=== PATIENT | female | born 1945 | race Caucasian/White ===

== ENCOUNTER 2025-03-24 11:24 | Emergency (ER) | payer MEDICARE, SELFPAY ==
--- NOTE | 2025-03-24 11:30 | ED.EXTPRO ---
HPI - Extremity Problem General Chief complaint: Skin/Abscess/Foreign Body Stated complaint: left thumb area swollen Time Seen by Provider: 03/24/25 11:30 Source: patient Mode of arrival: ambulatory Limitations: no limitations History of Present Illness HPI Narrative: Dayanna is a 79-year-old female patient presenting to the clinic today with complaints of left thumb pain, redness, and swelling. Reports symptoms started last night. No fevers, chills, body aches. Patient is diabetic. No no injury to the thumb. Has taken Tylenol for pain. Rates pain currently a 02/18. No history of MRSA. Related Data Home Medications ?Medication ?Instructions ?Recorded ?Confirmed ?Last Taken ?Type amiodarone 200 mg tablet mg 03/24/25 Unknown History apixaban 5 mg tablet (Eliquis) mg 03/24/25 Unknown History atorvastatin 20 mg tablet mg 03/24/25 Unknown History carvedilol 6.25 mg tablet mg 03/24/25 Unknown History duloxetine 30 mg capsule,delayed mg PO 03/24/25 Unknown History release empagliflozin 10 mg tablet mg 03/24/25 Unknown History (Jardiance) hydroxyzine HCl 25 mg tablet mg 03/24/25 Unknown History insulin glargine 100 unit/mL (3 unit subcut 03/24/25 Unknown History mL) subcutaneous pen (Lantus Solostar U-100 Insulin) semaglutide 2 mg/dose (8 mg/3 mL) mg subcut 03/24/25 Unknown History subcutaneous pen injector (Ozempic) sildenafil (pulm.hypertension) 20 mg 03/24/25 Unknown History mg tablet Allergies Allergy/AdvReac Type Severity Reaction Status Date / Time No Known Allergies Allergy Verified 03/24/25 11:39 Review of Systems Review of Systems: Pertinent positives per HPI. Patient denies any fever, chills, rash, headache, visual changes, dizziness, cough, runny nose, sore throat, shortness of breath, chest pain, palpitations, nausea, vomiting, diarrhea, constipation, abdominal pain, or any urinary issues. PMFSH Comments At the time of my signature, I reviewed and agree with the nursing past medical, surgical, social, and family history. There is no relevant family history pertinent to the patient complaint. Exam Narrative: General: Well-developed, well nourished, in no apparent distress Head: Normocephalic, atraumatic. Cardio: Regular rate and rhythm, s1 and s2 normal, no murmur appreciated. Resp: Clear to auscultation bilaterally, no rhonchi, rales, wheezing or rubs. Integumentary: [place], warm, and dry, left proximal and distal thumb red, swelling, with mild erythema and tender to palpation, scabbed area over the proximal dorsal thumb with lymphatic streaking going into the radial wrist Course Course Emergency Course: Portions of this record may have been created with voice recognition software. Level of Care: Express Care Visit Vital Signs Vital signs: Vital Signs Temperature 36.6 C 03/24/25 11:33 Pulse Rate 71 03/24/25 11:33 Respiratory Rate 16 03/24/25 11:33 Blood Pressure 136/54 L 03/24/25 11:33 Pulse Oximetry 98 03/24/25 11:33 Oxygen Delivery Room Air 03/24/25 11:33 Temperature 36.6 C 03/24/25 11:33 Pulse Rate 71 03/24/25 11:33 Respiratory Rate 16 03/24/25 11:33 Blood Pressure 136/54 L 03/24/25 11:33 Pulse Oximetry 98 03/24/25 11:33 Oxygen Delivery Room Air 03/24/25 11:33 Vital signs reviewed MDM - Extremity (Nontraumatic) MDM Narrative Medical decision making narrative: At the time of visit patient is resting comfortably on the exam table. Patient appears to be nontoxic. Complaints of left thumb pain, redness, and swelling. Reports symptoms started last night. No fevers, chills, body aches. Patient is diabetic. No no injury to the thumb. Has taken Tylenol for pain. Rates pain currently a 7/10. On exam left proximal and distal thumb red, swelling, with mild erythema and tender to palpation, scabbed area over the proximal dorsal thumb with lymphatic streaking going into the radial wrist. No history of MRSA. Shared decision making performed: Offer to send patient to the emergency room at this time for further evaluation, labs, and possible IV antibiotics. Other option would be to get injection of antibiotics in the clinic today and trial oral antibiotics and if her symptoms worsen in any way she should go to the emergency room. Patient would like IM injection and trial oral antibiotics. Rocephin 1 g mixed with lidocaine was ordered Medications: Rocephin 1 g mixed with lidocaine IM given in the clinic today Plan: I suspect patient has left thumb cellulitis with lymphatic streaking into the right radial wrist. Patient is a diabetic. Prescriptions for doxycycline and cephalexin was sent to the pharmacy. Supportive measures were discussed with the patient and they voiced understanding discharge instructions and agrees to treatment plan. Return precautions reviewed Differential Diagnosis Differential diagnosis: Likely herpes zoster, gout, cellulitis, superficial thrombophlebitis, deep venous thrombosis of upper extremity, lower extremity edema and deep vein thrombosis of lower extremity Discharge Plan Discharge Clinical Impression: Cellulitis of left thumb Patient Disposition: Home Condition: Stable Instructions: Antibiotic Form, Cellulitis (ED) Additional Instructions: I suspect to have cellulitis infection to the left thumb with some lymphatic streaking Offer to send you to the emergency room for further evaluation, labs, possible iv antibiotics and you declined at this time Rocephin 1 g mixed with lidocaine given in the clinic today Take doxycycline and cephalexin as prescribed. Keep a tight control in your blood sugar Keep wound clean and dry Watch for signs and symptoms of worsening infection- Fever not controlled by Tylenol, confusion, weakness, increase redness, streaking, swelling, purulent discharge, or increase in pain. Follow up with your PCP in 2 days for recheck Go to the emergency room if you develop worsening signs of infection Patient Language: Honduran Prescriptions: New cephalexin 500 mg capsule 500 mg PO Q8H 10 Days Qty: 30 0RF doxycycline monohydrate 100 mg capsule 100 mg PO BID 10 Days Qty: 20 0RF No Action carvedilol 6.25 mg tablet atorvastatin 20 mg tablet amiodarone 200 mg tablet hydroxyzine HCl 25 mg tablet duloxetine 30 mg capsule,delayed release(DR/EC) PO sildenafil (pulm.hypertension) 20 mg tablet insulin glargine [Lantus Solostar U-100 Insulin] 100 unit/mL (3 mL) insulin pen SUBCUT Eliquis 5 mg tablet Jardiance 10 mg tablet Ozempic 2 mg/dose (8 mg/3 mL) pen injector SUBCUT Follow-up/Referrals: Renato,Bill Leon MD [Primary Care Provider] - Time of Disposition: 11:52 Quality NIHSS Nursing Documentation ED NIHSS nursing documentation: reviewed/agree
[2025-03-24 11:33] VITALS: BP 136/54; PULSE 71; RESP 16; TEMP 36.6; O2SAT 98
--- OUTSIDE RECORDS SUMMARY | 2025-03-24 11:33 | XMS_ITS | Encounter Summary ---
Author Organization [facility] Address [address] [place] [address] Phone Care Team Providers Care Pecan Huller Name Role Phone Ariana Nuñez MD Unavailable Néstor Sloan MD Unavailable [phone] Peter Ritter MD Unavailable [phone] Harriet Aden DNP Unavailable [phone] Gabrielle Arias Unavailable Rasheed Shepard MD Unavailable Shantal Jaime MD Unavailable Tyron Huff MD Unavailable [phone] Ata Oliveira MD Unavailable [phone] Addie Francis MD Unavailable Bill Gross MD Primary Care Provider Vinh Scherer MD Unavailable Michael Weiss MD Unavailable Ayde Hewitt NP Unavailable [phone] Farnaz Banda MD Unavailable [phone] Femi Lorenzana MD Unavailable Jeanne Laguerre MD Unavailable John Zarate MD Unavailable [phone] Izzy Padilla MD PhD Unavailable Reid Whipple MD Unavailable Yen Fleming DO Unavailable Datillo, Laura Osman QUILTING MACHINE OPERATOR Unavailable Peter Ritter MD Unavailable [phone] Otto White MD Unavailable Otto White MD Unavailable Heber Christianson MD Unavailable Datillo, Laura Osman QUILTING MACHINE OPERATOR Unavailable Iliana Leonard Unavailable James Gonzalez MD Unavailable Iliana Leonard Unavailable Delmy Godfrey MD Unavailable Mayte Hudson RN Unavailable Bart Fernando MD, Santana Cooney Unavailable + Encounter Details Date Type Department Care Team (Late st Contact Info) Description 04/25/2021 Orders Only [facility] [address] [place] [address] Bill Gross MD [address] [place] [address] Social History Tobacco Use Types Packs/Day Years Used Date Smoking Tobacco: Never Smokeless Tobacco: Never Alcohol Use Standard Drinks/Week Comments No 0 (1 standard drink = 0.6 oz pur e alcohol) Humiliation, Afraid, Rape, and Kick questionnair e Answer Date Recorded Within the last year, have y ou been afraid of your partner or ex-partner? No 11/22/2020 Within the last year, have y ou been humiliated or emotionally abused in other ways by your partner or ex-partner? No Within the last year, have y ou been kicked, hit, slapped, or otherwise physically hurt by your partner or ex-partner? No 11/22/2020 Within the last year, have y ou been raped or forced to have any kind of sexual activity by your partner or ex-partner? No 11/22/2020 Social Connection and Isolation Panel Answer Date Recorded In a typical week, how many times do you talk on the phone with family, friends, or neighbors? Three times a week 11/23/19 How often do you get togethe r with friends or relatives? Once a week 11/22/2020 How often do you attend chur or christianity services? 1 to 4 times per year 11/22/2020 Do you belong to any clubs o r organizations such as temple groups, unions, fraternal or athletic groups, or school groups? Yes 11/22/2020 How often do you attend meet ings of the clubs or organizations you belong to? 1 to 4 times per year 11/22/2020 Are you , , di vorced, , never , or living with a partner? 11/22/2020 AUDIT-C Answer Date Recorded Q1: How often do you have a drink containing alc ohol? Monthly or less 03/17/2021 Q2: How many drinks containi ng alcohol do you have on a typical day when you are drinking? 1 or 2 03/17/2021 Q3: How often do you have si x or more drinks on one occasion? Never 03/17/2021 Overall Financial Resource Strain (CARDIA) Answe r Date Recorded How hard is it for you to pa y for the very basics like food, housing, medical care, and heating? Not very hard 11/22/2020 PHQ-2 Answer Date Recorded PHQ-2 Total Score (If total score is 3 or more points, staff should administer the PHQ-9) 4 12/28/2020 Hunger Vital Sign Answer Date Recorded Within the past 12 months, y ou worried that your food would run out before you got the money to buy more. Never true 11/23/19 21 Within the past 12 months, t he food you bought just didn't last and you didn't have money to get more. Never true 11/22/2020 PRAPARE - Transportation Answer Date Re corded In the past 12 months, has l ack of transportation kept you from medical appointments or from getting medications? No 11/10 In the past 12 months, has l ack of transportation kept you from meetings, work, or from getting things needed for daily living? No 11/22/2020 Housing Stability Vital Sign Answer Aguilar e Recorded In the last 12 months, was t here a time when you were not able to pay the mortgage or rent on time? No 11/22/2020 Number of Places Lived in the Last Year Not on f ile 11/22/2020 In the last 12 months, was t here a time when you did not have a steady place to sleep or slept in a penitentiary (including now)? No 11/22/2020 Comments No Sex and Gender Information Value Date Recorded Sex Assigned at Not on file Legal Sex Female 11:59 PM RAILCAR MECHANIC Gender Identity Female 01/29/2022 12:55 PM CDT Sexual Orientation Straight 06/10/2019 1: 27 PM CDT Occupation Industry Job Start Date Job End Date retired Not on file Not on file Not on file documented as of this encounter Plan of Treatment Scheduled Procedures Name Priority Associated Diagnoses Date/Ti me ESOPHAGOGASTRODUODENOSCOPY Pulmonary hypertension (HCC) documented as of this encounter Procedures Procedure Name Priority Date/Time Associated Diagnosis Comments PROCEDURE - RESULT 04/25/2021 documented in this encounter Results * PROCEDURE - RESULT (04/25/2021) us Bill Gross MD Edited Result - Final documented in this encounter Visit Diagnoses Not on filedocumented in this encounter Additional Health Concerns Infection Onset Date Last Indicated Resolved Time COVID: Suspected 06/27/2022 06/27/2022 06/27/2022 5:07 PM RAILCAR MECHANIC documented as of this encounter Care Teams Pecan Huller Relationship Specialty Start Date End Date Bill Gross MD [address] [place] [address] PCP - General Infectious Diseases 12/05/20 Ariana Nuñez MD [address] [facility] [facility] [address] [place] [address] Referring Physician Endocrinology Diabetes & Metabolism 12/07/17 Néstor Sloan MD [address] [facility] [facility] [address] [place] [address] Surgeon Neurosurgery 12/14/17 Peter Ritter MD [address] [place] [address] [address] [place] [address] Consulting Physician Endocrinology 05/27/19 11/12/21 Harriet Aden DNP [address] [place] [address] [address] [place] [address] Nurse Practitioner Neurology 09/24/19 11/28/23 Gabrielle Arias PA [address] [place] [address] [address] [place] [address] Physician Ham Marker Orthopedic Surgery 09/24/19 [place] [address] [address] Surgeon Orthopedic Surgery 02/10/20 [place] [address] [address] Consulting Physician Bone Health 10/10/20 [place] [address] [address] Anesthesiologist Pain Management 02/10/12 Ata Oliveira MD [address] [facility] [address] [facility] [place] [address] Consulting Physician Neurology 02/10/20 Addie Francis MD [address] [facility] [place] [address] Surgeon Vascular Surgery 11/08/20 Vinh Scherer MD [address] [place] [address] Consulting Physician Vascular Surgery 10/28/20 Michael Weiss MD [address] [address] Consulting Physician Psychiatry 02/09/21 Ayde Hewitt QUILTING MACHINE OPERATOR [address] [facility] [address] [place] [address] Nurse Practitioner Cardiovascular Disease 03/09/21 06/21/23 Farnaz Banda MD [address] [place] [address] Consulting Physician Pulmonary Disease 04/27/21 Femi Lorenzana MD [address] [place] [address] Consulting Physician Sleep Medicine 09/21/21 Jeanne Laguerre MD [address] [place] [address] Referring Physician Ophthalmology 06/12/21 John Zarate MD [address] [place] [address] Consulting Physician Cardiology 04/09/22 Izzy Padilla MD PhD [address] [place] [address] Consulting Physician Internal Medicine 07/03/22 Reid Whipple MD [address] [facility] [address] Delarosa [facility] [address] [place] [address] Surgeon Orthopedic Surgery 05/25/22 Yen Fleming DO [address] [facility] [address] [place] [address] Consulting Physician Nephrology 11/26/22 05/16/23 Laura Menjivar, AMALIA [address] [facility] [address] [place] [address] Nurse Practitioner Family Medicine 12/21/22 Peter Ritter MD [address] [facility] [address] [place] [address] Consulting Physician Endocrinology 01/18/23 Otto White MD [address] [facility] [address] [place] [address] Consulting Physician Nephrology 05/14/23 Otto White MD [address] [facility] [address] [place] [address] Consulting Physician Nephrology 05/14/23 05/27/23 Heber Christianson MD [address] [place] [address] Referring Physician Internal Medicine 06/04/23 Laura Menjivar NP [address] [facility] [address] [place] [address] Nurse Practitioner Cardiology 06/11/23 07/06/23 Iliana Leonard PA [address] [place] [address] [address] [place] [address] Batch Weigher Orthopedic Surgery 07/24/23 James Gonzalez MD [address] [place] [address] [address] [place] [address] Consulting Physician General Surgery 09/12/23 Iliana Leonard PA [address] [facility] [address] [place] [address] Orthopedic Surgery 09/25/23 Delmy Godfrey MD [address] [place] [address] [address] [place] [address] Consulting Physician Internal Medicine 12/23/23 Mayte Hudson RN [address] [place] [address] [address] [place] [address] Type Inspector 12/18/24 02/21/25 Bart, Santana Cooney Jr., MD [address] [facility] [address] IM PULMONARY [facility] CRITICAL CARE MEDICINE [place], [place] [id number] Consulting Physician Pulmonary Disease 08/23/24 documented as of this encounter
--- OUTSIDE RECORDS SUMMARY | 2025-03-24 11:33 | XMS_ITS | Clinical Summary ---
Author Organization [facility] Address [address], [facility] [address] [place] [address] Phone Care Team Providers Care Last Picker Name Role Phone Bill Gross MD Primary Care Provider [phone] Chris Wayne APRN, [employer] Unavailable [phone] Allergies No known active allergies Medications Blood Glucose Monitoring Suppl (D-CARE GLUCOMETER) w/Device Kit 1 Device by Does not apply route daily. 1 Kit 7 Active ferrous sulfate 325 (65 Fe) MG Tablet Take 325 mg by mouth daily. Active simvastatin (ZOCOR) 40 MG Tablet Take 1 Tab by mouth every evening. 90 Tab 3 8 Active omeprazole (PRILOSEC) 40 MG CAPSULE DELAYED RELEASE Take 1 Cap by mouth daily. 90 Cap 8 Active Multiple Vitamins-Ritchie als (MULTIVITAMIN PO) Take 1 Tab by mouth. Active apixaban (ELIQUIS) 5 MG Tablet Take 5 mg by mouth 2 times daily. Active insulin glargine (Lantus) 100 UNIT/ML Solution 10 Units by Subcutaneous route nightly. Active HYDROcodone-ac etaminophen (NORCO) 5-325 MG TabletIndicati ons:Pain Take 1-2 Tablets by mouth every 6 hours as needed for Mild or more severe pain. Indications: Pain 1 Active Calcium Carb-Cholecalc iferol 600-800 MG-UNIT Tablet Take 1 Tablet by mouth daily. 1 Active DULoxetine HCl 20 MG Capsule Delayed Release Sprinkle Take 20 mg by mouth daily. 1 Active metoprolol tartrate (LOPRESSOR) 25 MG Tablet Take 50 mg by mouth 2 times daily. 1 Active sildenafil (REVATIO) 20 MG Tablet TAKE 1 TABLET BY MOUTH THREE TIMES DAILY FOR 2 WEEKS, THEN 2 TABLETS BY MOUTH 3 TIMES A DAY 2 Active propranolol (INDERAL) 10 MG Tablet TAKE 1 TABLET BY MOUTH THREE TIMES A DAY 2 Active Multiple Vitamins-[employer] als (Multivitamin- Minerals) Tablet Multivitamin-Mine rals Oral Tablet QTY: 0 tablet Days: 0 Refills: 0 Written: 11/09/20 Patient Instructions: TAKE 1 TABLET BY MOUTH DAILY 1 Active furosemide (LASIX) 40 MG Tablet Take 40 mg by mouth daily. 2 Active escitalopram (LEXAPRO) 20 MG Tablet 2 Active busPIRone (BUSPAR) 5 MG Tablet 2 Active amitriptyline (ELAVIL) 10 MG Tablet TAKE 1 TABLET BY MOUTH EVERY DAY IN THE EVENING 2 Active Acetaminophen 500 MG Capsule Acetaminophen 500 MG Oral Capsule QTY: 0 capsule Days: 0 Refills: 0 Written: 11/09/20 Patient Instructions: 1 Active atorvastatin (LIPITOR) 20 MG Tablet 2 Active clonazePAM (KlonoPIN) 0.5 MG Tablet clonazePAM 0.5 MG Oral Tablet QTY: 0 tablet Days: 0 Refills: 0 Written: 11/09/20 Patient Instructions: TAKE 1 TABLET (0.5MG TOTAL) BY MOUTH DAILY 1 Active citalopram (CeleXA) 20 MG Tablet Citalopram Hydrobromide 20 MG Oral Tablet QTY: 0 tablet Days: 0 Refills: 0 Written: 11/09/20 Patient Instructions: TAKE 1 TABLET (20MG TOTAL) BY MOUTH DAILY 1 Active Zoledronic Acid 4 MG Recon Soln Zoledronic Acid 4 MG/5ML Intravenous Concentrate QTY: 0 Days: 0 Refills: 0 Written: 11/09/20 Patient Instructions: INFUSE 4MG INTO A VENOUS CATHETER 1 Active Mirabegron ER (Myrbetriq) 25 MG TABLET SR 24 HRIndications: Overactive bladder Take 25 mg by mouth daily. 30 Tablet 1 2 Active Diclofenac Sodium (Voltaren) 1 % GelIndications :Right wrist pain Apply 2 g 4 times daily. Right wrist 100 g 1 4 Active Active Problems Problem Noted Date Diagnosed Date Liver cyst 02/04/2018 Compression deformity of vertebra 02/04/2018 Osteoporosis 02/04/2018 Osteoarthritis of multiple joints 08/17/2016 Type 2 diabetes mellitus without complication Overactive bladder Anxiety Depression GERD (gastroesophageal reflux disease) Hiatal hernia HTN (hypertension) HLD (hyperlipidemia) TARAN (obstructive sleep apnea) DJD (degenerative joint disease), lumbar SI (sacroiliac) joint dysfunction Vitamin B12 deficiency Immunizations Immunization Administration Dates Next Due Influenza Vaccine greater than 3 yrs 07/27/2015, 07/12/2014 Influenza Vaccine, Quadrivalent, PF 07/26/2017 Influenza, high-dose, trivalent, PF 05/01/2019,1 ,07/26/2015 PUR PCV-13 08/17/2016 Pneumococcal Vaccine Adult - 23 Valent 5 TD VACCINE 04/12/2015 Family History Medical History Relation Name Comments Cancer Brother sinus and liver Heart Attack Father Breast Cancer Maternal Grandmother Breast Cancer Mother Cancer Mother breast Diabetes Mother Stroke Mother Relation Name Status Comments Brother Father Maternal Grandmother Mother Social History Tobacco Use Types Packs/Day Years Used Date Smoking Tobacco: Never Smokeless Tobacco: Never Tobacco Cessation:Counseling Given: Yes Alcohol Use Standard Drinks/Week Comments No 0 (1 standard drink = 0.6 oz pur e alcohol) Comments No Sex and Gender Information Value Date Recorded Sex Assigned at Not on file Legal Sex Female 12:41 AM CDT Gender Identity Not on file Sexual Orientation Not on file Last Filed Vital Signs Vital Sign Reading Time Taken Comments Blood Pressure 128/70 02/22/2024 2:53 PM CDT Pulse 89 02/22/2024 2:53 PM CDT Temperature 36.1 C (97 F) 02/22/2024 2:53 PM CDT Respiratory Rate 12 02/22/2024 2:53 PM CDT Oxygen Saturation 99% 02/22/2024 2:53 PM CDT Inhaled Oxygen Concentration - - Weight 75.8 kg (167 lb) 02/27/2022 11:13 AM CDT Height 152.4 cm (5') 02/27/2022 11:13 AM CDT Body Mass Index 32.61 02/27/2022 11:13 AM CDT Plan of Treatment Health Maintenance Due Date Last Done Comments Diabetes: Foot Exam 1945 Hepatitis C Virus (HCV) Screening 1945 Diabetes: Eye Exam 05/24/2017 05/24/2016 Diabetes: Nephropathy Screening 01/28/2019 01/28/2018, 07/16/2017, 11/08/2016, Additional history exists Respiratory Syncytial Virus (RSV) Immunization (Adult) (1 - 1-dose 75+ series) 2021 SARS-COV-2 Immunization ( season) 2024 05/01/2021, 04/03/2021 Diabetes: Hemoglobin A1c 05/29/2024 024, 11/03/2020, 08/23/2020, Additional history exists DEXA Bone Density 09/11/2024 09/11/2022, , 08/16/2020, Additional history exists Influenza Immunization (#1) 04/12/202506/12, 08/14/2021, 06/07/2020, Additional history exists TdaP Immunization Completed 12/17/2014 Pneumococcal Immunization (50+ years) Completed 08/17/2016, 12/17/2014 Pneumococcal Immunization Combined Discontinued 08/17/2016, 12/17/2014 Colonoscopy Discontinued 02/11/2019, 09/08/2014 Colorectal Cancer Screening Discontinued Zoster Immunization Completed 08/07/2019, 9 Mammogram Discontinued 02/10/2021, 09/2020, 07/05/2018, Additional history exists Cologuard Discontinued Hepatitis B Immunization Aged Out No longer eligible based on patient's age to complete this topic Human Papillomavirus (HPV) Immunization Aged Out No longer eligible based on patient's age to complete this topic Immunochemical Fecal Occult Blood Discontinued Meningococcal Immunization (ACWY) Aged Out No longer eligible based on patient's age to complete this topic Rotavirus Immunization Aged Out No lo nger eligible based on patient's age to complete this topic Procedures Procedure Name Priority Date/Time Associated Diagnosis Comments CMP (COMPREHENSIVE METABOLIC PANEL) Routine 01/28/2018 9:08 AM CDT Type 2 diabetes mellitus without complication, without long-term current use of insulin (HCC) HEMOGLOBIN A1C W/ ESTIMATED GLUCOSE Routine 01/28/2018 9:08 AM CDT Type 2 diabetes mellitus without complication, without long-term current use of insulin (HCC) ODALIS SCREENING BILATERAL DIGITAL W CAD Routine 01/25/2017 12:35 PM CDT Encounter for screening mammogram for breast cancer HM DILATED EYE EXAM Routine 05/24/2016 HM COLONOSCOPY Routine 09/08/2014 10:48 AM CLEANING MACHINE OPERATOR from Last 3 Months or Most Recently Relevant to Health Maintenance Results * (ABNORMAL) HEMOGLOBIN A1C W/ ESTIMATED GLUCOSE (01/28/2018 9:08 AM CDT) HGB-A1C 6.5(H) 4.4 - 6.4 % 01/28/2018 11:30 AM CDT [facility] Est Average Glucose 139.9 mg/dL 01/28/2018 11:[address] [facility] Blood specimen (specimen) Venipuncture / Unknown 01/28/2018 9:08 AM CDT 01/28/2018 9:08 AM CDT Narrative [facility] - 01/28/2018 11:30 AM CDT HEMOGLOBIN A1C: DIABETIC PATIENTS: WELL-CONTROLLED: 6.2 - 7.0 INTERMEDIATE WELL-CONTROLLED: 7.0 - 9.0 POORLY-CONTROLLED: >9.0 us Ellen García MD CHEMISTRY ORDERABLES Final R esult [facility] [address] [place] [address] * (ABNORMAL) CMP (COMPREHENSIVE METABOLIC PANEL) (01/28/2018 9:08 AM CDT) SODIUM 140 131 - 143 mmol/L 01/28/2018 12:04 PM CDT [facility] POTASSIUM 4.4 3.5 - 5.1 mmol/L 01/28/2018 12:04 PM CDT [facility] CHLORIDE 97(L) 100 - 110 mmol/L 01/28/2018 12:04 PM T [facility] CO2, VENOUS 26 22 - 32 mmol/L 01/28/2018 12:04 PM CDT [facility] ANION GAP 21.4(H) 8.0 - 20.0 mmol/L 01/28/2018 12:04 PM T [facility] GLUCOSE 149(H) 70 - 105 mg/dL 01/28/2018 12:04 PM T [facility] BUN 16 10 - 31 mg/dL 01/28/2018 12:[address] [facility] CREATININE, BLOOD 0.84 0.60 - 1.30 mg/dL 01/28/2018 12:04 PM CDT [facility] BUN/CREATININE RATIO 19 12 - 20 ratio 01/28/2018 12:04 PM T [facility] TOTAL PROTEIN 7.2 6.0 - 8.3 g/dL 01/28/2018 12:04 PM T [facility] ALBUMIN 4.2 3.5 - 5.2 g/dL 01/28/2018 12:[address] [facility] A/G RATIO 1.4 1.0 - 2.0 01/28/2018 12:04 PM CDT [facility] CALCIUM 10.8(H) 8.9 - 10.3 mg/dL 01/28/2018 12:04 PM T [facility] T BILI 0.6 0.3 - 1.2 mg/dL 01/28/2018 12:04 PM CDT [facility] SGOT (AST) 13 1 - 32 U/L 01/28/2018 12:04 PM T [facility] SGPT (ALT) 8 1 - 33 U/L 01/28/2018 12:04 PM CDT [facility] ALKALINE PHOSPHATASE 146(H) 35 - 105 U/L 01/28/2018 12:04 PM CDT [facility] GFR, EST. NONAFRICAN >60 >=60 01/28/2018 12:04 PM CDT [facility] GFR, EST. >60 >=60 01/28/2018 12:04 PM CDT [facility] Comment: Creatinine Clearance is the preferred criteria for selecting drug dose adjustments in renally impaired patients. The GFR is provided as additional pertinent clinical information. GFR is reported in mL/min/1.73 sq m. Blood specimen (specimen) Venipuncture / Unknown 01/28/2018 9:08 AM CDT 01/28/2018 9:08 AM CDT us Ellen García MD CHEMISTRY ORDERABLES Final R esult [facility] [address] [place] [address] * ODALIS SCREENING BILATERAL DIGITAL W CAD (01/25/2017 12:35 PM CDT) Anatomical Region Laterality Modality breast Bilateral Mammography 01/25/2017 12:1 9 PM CDT Narrative 01/26/2017 7:16 AM CDT - ODALIS SCREENING BILATERAL DIGITAL W CAD BILATERAL DIGITAL SCREENING MAMMOGRAM WITH CAD WITH MEDIOLATERAL OBLIQUE CRANIOCAUDAL: 01/25/2017 The study was acquired using digital technology and interpreted from soft copy. Current study was also evaluated with ICAD version 7.2. CLINICAL: Routine screening. Patient has no complaints. No personal history of cancer. Mother with postmenopausal breast cancer. Maternal grandmother had breast cancer. COMPARISONS: Comparison is made to exams dated: 09/08/2014, 07/03/2013, and 04/30/2012 [facility]. BREAST TISSUE:The tissue of both breasts is predominantly fatty. FINDINGS: No significant masses, calcifications, or other findings are seen in either breast. There has been no significant interval change. IMPRESSION: BI-RAD 1 NEGATIVE There is no mammographic evidence of malignancy. A 1 year screening mammogram is recommended. The patient has been or will be contacted. The patient will be entered into a reminder system with a target due date of 1 year for her next screening exam. Electronically signed by: James [email or web address]/penrad:01/25/2017 17:33:30 Non Licensed Operator: Haley Robison(R), [facility] letter sent: Normal Exam Reading location: [facility] BI-RADS: 1 Negative Procedure Note James Ahn MD - 01/26/2017 - ODALIS SCREENING BILATERAL DIGITAL W CAD BILATERAL DIGITAL SCREENING MAMMOGRAM WITH CAD WITH MEDIOLATERAL OBLIQUE CRANIOCAUDAL: 01/25/2017 The study was acquired using digital technology and interpreted from soft copy. Current study was also evaluated with ICAD version 7.2. CLINICAL: Routine screening. Patient has no complaints. No personal history of cancer. Mother with postmenopausal breast cancer. Maternal grandmother had breast cancer. COMPARISONS: Comparison is made to exams dated: 09/08/2014, 07/03/2013, and 04/30/2012 [facility]. BREAST TISSUE:The tissue of both breasts is predominantly fatty. FINDINGS: No significant masses, calcifications, or other findings are seen in either breast. There has been no significant interval change. IMPRESSION: BI-RAD 1 NEGATIVE There is no mammographic evidence of malignancy. A 1 year screening mammogram is recommended. The patient has been or will be contacted. The patient will be entered into a reminder system with a target due date of 1 year for her next screening exam. Electronically signed by: James mcgrath/penrad:01/25/2017 17:33:30 Non Licensed Operator: Haley Robison(R), [facility] letter sent: Normal Exam Reading location: [facility] BI-RADS: 1 Negative Result Renee García MD IMG MAMMO ORDERABLES Final R esult * HM DILATED EYE EXAM (05/24/2016) us Ellen García MD PROCEDURE/MINOR SURGICAL ORD ERABLES Final Result from Last 3 Months or Most Recently Relevant to Health Maintenance Insurance MEDICARE [facility] Advance Directives * Full Code (Latest Code Status on File) Date Activated Date Inactivated Comments 11/28/2020 12:36 PM * Full Code Date Activated Date Inactivated Comments 12/25/2017 1:09 PM 06/06/2018 5:22 AM Care Teams Last Picker Relationship Specialty Start Date End Date Bill Gross MD [employer], [address] [place] [address] PCP - General Infectious Disease 12/14/20 Chris Wayne, MAT MACHINE TENDER, [employer]RA[employer] [address] [place] [address] Nurse Practitioner Advanced Practice Nurse 02/27/22
--- OUTSIDE RECORDS SUMMARY | 2025-03-24 11:33 | XMS_ITS | Clinical Summary ---
Author Organization [facility] Facility Address [address] [place] [id number] Care Team Providers Care Quality Analyst Name Role Phone Heber Gross MD Primary Care Provider Allergies No known active allergies Medications Acetaminophen 500 MG capsule 4 times a day 1 Active apixaban (ELIQUIS) 5 MG tablet twice a day 1 Active Blood Glucose Monitoring Suppl ([facility] Blood Glucose Meter) w/Device kit [facility] Blood Glucose Meter w/Device Kit QTY: 0 kit Days: 0 Refills: 0 Written: 11/09/20 Patient Instructions: 1 Active Calcium Carb-Cholecalc iferol 500-10 MG-MCG tablet Calcium Carbonate-Vitamin D 500-400 MG-UNIT Oral Tablet QTY: 0 tablet Days: 0 Refills: 0 Written: 11/09/20 Patient Instructions: TAKE BY MOUTH 1 Active citalopram (CeleXA) 20 MG tablet daily 1 Active clonazePAM (KlonoPIN) 0.5 MG tablet daily 1 Active ferrous sulfate 325 (65 Fe) MG tablet daily 1 Active insulin glargine (Lantus) 100 UNIT/ML injection Lantus 100 UNIT/ML Subcutaneous Solution QTY: 0 Days: 0 Refills: 0 Written: 11/09/20 Patient Instructions: INJECT 10 UNITS UNDER THE SKIN DAILY 1 Active glucose blood (OneTouch Ultra) test strip OneTouch Ultra In Vitro Strip QTY: 0 strip Days: 0 Refills: 0 Written: 11/09/20 Patient Instructions: USE TO TEST BLOOD GLUCOSE 3 TIMES EACH DAY DX E11.65, Z79.4 1 Active Insulin Syringe-Needle U-100 (BD Insulin Syringe Ultrafine) 31G X 5/16 0.5 ML misc BD Insulin Syringe Ultrafine 31G X 5/16 0.5 ML Miscellaneous QTY: 0 Days: 0 Refills: 0 Written: 11/09/20 Patient Instructions: USE 1 SUBCUTANEOUSLY 1-4 TIMES DAILY DIRECTED 1 Active Multiple Vitamins-Moffat als (Multivitamin- Minerals) tablet Multivitamin-Moffat als Oral Tablet QTY: 0 tablet Days: 0 Refills: 0 Written: 11/09/20 Patient Instructions: TAKE 1 TABLET BY MOUTH DAILY 1 Active oxybutynin XL (DITROPAN-XL) 10 MG 24 hr tablet Oxybutynin Chloride ER 10 MG Oral Tablet Extended Release 24 Hour QTY: 0 tablet Days: 0 Refills: 0 Written: 11/09/20 Patient Instructions: TAKE 10MG BY MOUTH DAILY 1 Active polyethylene glycol (GLYCOLAX) 17 GM/SCOOP powder Polyethylene Glycol 3350 17 GM Oral Packet QTY: 0 packet Days: 0 Refills: 0 Written: 11/09/20 Patient Instructions: START TAKING ON 11/09/2020 TAKE 1 PACKET (17G TOTAL) BY MOUTH DAILY 1 Active primidone (MYSOLINE) 50 MG tablet Primidone 50 MG Oral Tablet QTY: 0 tablet Days: 0 Refills: 0 Written: 11/09/20 Patient Instructions: TAKE 1 TABLET (50MG TOTAL) BY MOUTH 2(TWO) TIMES A DAY 1 Active simvastatin (ZOCOR) 40 MG tablet Simvastatin 40 MG Oral Tablet QTY: 0 tablet Days: 0 Refills: 0 Written: 11/09/20 Patient Instructions: TAKE 1 TABLET (40MG TOTAL) BY MOUTH NIGHTLY 1 Active Empagliflozin 10 MG tablet Take 10 mg by mouth 1 (one) time each day in the morning Active Active Problems Problem Noted Date Diagnosed Date Chronic kidney disease stage 4 05/13/2023 Depressive disorder 04/26/2023 04/26/2023 Hyperlipidemia 04/26/2023 04/26/2023 Hypertensive disorder 04/26/2023 04/26/2023 Lumbar spondylosis 04/26/2023 04/26/2023 Chronic kidney disease, stage 2 (mild) 3 Polyneuropathy due to type 2 diabetes mellitus 0 02/06/2023 04/26/2023 Overview (04/26/2023): Last Assessment & Plan: Protective sensation is absent in her feet. She has moderate symmetrical stocking hypoesthesia in both legs. I think a lot of her gait problem has to do with her diabetic neuropathy. Unfortunately this is not reversible, or only minimally so. I recommended that she follow-up with Dr. Ritter to get her blood sugars under better control. Coronary atherosclerosis 08/22/2022 023 Overview (04/26/2023): Last Assessment & Plan: She has occasional chest pains, not clear that it is angina. She is on medical therapy and has had recent interventions. She will keep her follow ups with cardiology. Atrial fibrillation 11/06/2020 04/26/2023 Overview (04/26/2023): Last Assessment & Plan: Heart rhythm is currently regular. She is on amiodarone and Eliquis and carvedilol. Continue same and keep followups with Cardiology. Personal history of pulmonary embolism 04/26/2023 Overview (04/26/2023): High risk of recurrence. Last Assessment & Plan: On chronic apixaban (will also address AF; see above). Essential tremor 07/06/2019 04/26/2023 Overview (04/26/2023): Last Assessment & Plan: She has a moderate essential tremor in her hands. She used to take primidone. She was started recently on Eliquis for a large pulmonary embolism, and there is an interaction with primidone so we stopped the latter medication. Her tremor has gotten worse. We are trying a higher dose of beta-or[place] to see if he gets better. Follow-up in one week. Chronic low back pain 01/15/2019 04/26/2023 Overview (04/26/2023): Sees Dr. Shepard. Last Assessment & Plan: Followed by pain mgmt. Patient receiving spinal injections. Osteoporosis 02/04/2018 04/26/2023 Gastroesophageal reflux disease 12/09/2017 04/26/2023 Overview (04/26/2023): On omeprazole, symptoms controlled per office notes. Last Assessment & Plan: She takes omeprazole every day, but still gets heartburn type symptoms. She also has dysphagia which is a long-term type of symptom. She had a Sanjuanita fundoplication about 10 years ago. She had an endoscopy about four years ago which showed esophagitis and an intact Sanjuanita. Type 2 diabetes mellitus 02/10/2000 023 Overview (04/26/2023): Used to see Dr. Gordon. Last Assessment & Plan: Diagnosed more than 25 years ago Started on insulin in March 2019 Control : tight control with mild fasting hypoglycemia A1c 6.8% on 03/21/23 A1c 8.6% on 11/12/22 A1c 6.4% on 08/23/20. A1c 5.9% on 05/17/2020 Kidney: CKD- GFR of 27 On 11/12/22 Plan: Patient to continue diet plan. Decrease insulin to 15 units Qam Continue Jardiance She will increase Ozempic to 1 mg /week, as prescribed by her PCp and watch for side effects like nausea/vomiting or abdominal pains. She will need to go back on the lower dose if side effects develop Monitor sugars 3 x per day. Hypoglycemia symptoms and treatment reviewed with patient. Call if having low sugars. Ophthalmology exam on regular basis. She will follow up with her PCP and offeered to come back to see Rita Sommers NP if needed. Obstructive sleep apnea syndrome 02/09/1990 04/26/2023 Overview (04/26/2023): Was on CPAP for years, but stopped using it in about 1999 when equipment broke and she could not get the system to replace it. As of February 2021 she was not interested in pursuing a follow up sleep study or resuming CPAP Rx. Sleep study showed severe sleep disorder breathing with the RDI of 42.8. Follow titration, CPAP at [address] Lorenzana. Last Assessment & Plan: She got out of the hospital about two weeks ago and stopped using her CPAP, just resuming it a day or two ago. This could be why she feels so tired. We encouraged her to resume it on a regular basis. Immunizations Immunization Administration Dates Next Due Influenza Split High Dose Pr eservative Free IM 05/01/2019,06/07/2016,07/26/2015 Influenza, Quadrivalent, Preservative Free 08/14,07/26/2017 Influenza, Unspecified 05/16/2018 Pfizer SARS-COV-2 05/01/2021 Pneumococcal Conjugate 13-Valent 08/17/2016 Pneumococcal Polysaccharide 12/17/2014 Shingrix 08/07/2019,05/01/2019 Td 04/12/2015 Tdap 12/17/2014 Family History Medical History Relation Comments Heart disease Father Heart disease Maternal Grandfather Cancer Mother Stroke Mother Heart disease Paternal Grandmother Relation Status Comments Father Maternal Grandfather Mother Paternal Grandmother Social History Tobacco Use Types Packs/Day Years Used Date Smoking Tobacco: Never Smokeless Tobacco: Never Tobacco Cessation:Counseling Given: Not Answered Comments Unknown Sex and Gender Information Value Date Recorded Sex Assigned at Female 06/07/2024 3:04 PM EDT Legal Sex Female 2:43 PM EDT Gender Identity Female 06/07/2024 3:04 PM EDT Sexual Orientation Straight 06/07/2024 3: 04 PM EDT Last Filed Vital Signs Vital Sign Reading Time Taken Comments Blood Pressure 102/67 12/09/2024 3:16 PM CDT Pulse 90 12/09/2024 3:16 PM CDT Temperature 36.1 C (97 F) 12/09/2024 3:16 PM CDT Respiratory Rate 16 12/09/2024 3:16 PM CDT Oxygen Saturation 95% 12/09/2024 3:16 PM CDT Inhaled Oxygen Concentration - - Weight 72.1 kg (159 lb) 12/09/2024 3:16 PM CDT Height 162.6 cm (5' 4) 12/02/2023 2:01 PM CDT Body Mass Index 27.29 12/02/2023 2:01 PM CDT Plan of Treatment Upcoming Encounters Date Type Department Care Team (Late st Contact Info) Description 05/12/2025 3:00 PM CDT Office Visit [facility] [address] [facility] [address] [place] [address] Otto White MD 2 [facility] [address] [place] [address] Health Maintenance Due Date Last Done Comments Hepatitis B Vaccine (1 of 3 - Risk 3-dose series) 2006 Diabetes: Ophthalmology Exam 04/24/2023 Diabetes: Pedal Pulse Checked 04/24/2023 Diabetes: Sensory Foot Exam 04/24/2023 Diabetes: Visual Foot Exam 04/24/2023 Diabetes: Hemoglobin A1C 11/30/2024 025, 02/24/2024, 11/28/2023, Additional history exists Influenza Vaccine (#1) 2025 2, 05/01/2019, 05/16/2018, Additional history exists Pneumococcal Vaccine: 50+ Years Completed 7, 12/17/2014 Procedures Procedure Name Priority Date/Time Associated Diagnosis Comments EXT RESULT ENTRY Routine 11/28/2023 from Last 3 Months or Most Recently Relevant to Health Maintenance Results * (ABNORMAL) EXT RESULT ENTRY (11/28/2023) WBC 7.0 3.3 - 10.0 10*3/ML Red Blood Cell Count 4.93 Hemoglobin 16.0 12.0 - 16.0 Hematocrit 51.4(A) 36.0 - 46.0 Platelets 232 150 - 399 10*3/UL Iron 79 UG/DL TIBC 331 ug/dL TRANSFERRIN (MG/DL) IN SER/PLAS (EXTERNAL RESULT ENTRY) 24 Sodium 139 137 - 147 Potassium 4.1 3.4 - 5.5 Chloride 99.0 99.0 - 108.0 Carbon Dioxide 29 mmol/L Anion Gap 11 <=30 MMOL/L Glucose 124 60 - 200 BUN 28(A) 4 - 21 mg/dL Creatinine 1.56(A) 0.50 - 1.10 mg/dL Albumin 4.0 3.5 - 5.0 g/dL Calcium 9.4 8.7 - 10.7 mg/dL Phosphorus, Serum 2.7 eGFR CKD-EPI CR 2020 34 mL/min/1.7 3m*2 PTH 110 PG/ML Hemoglobin A1C 7.6(A) 4.0 - 6.0 Creatinine, Urine Random 106.4 mg/dL Alb/Creat Ratio, Ur 14 mg/g Creat Albumin, Urine 14.9 mg/dL 11/28/2023 [facility] Provider LAB BLOOD ORDERABLES Annita l Result from Last 3 Months or Most Recently Relevant to Health Maintenance Insurance [employer] [facility] Adv O ([id number]) Advance Directives Documents on File Type Date Recorded Patient Steel Chipper Expl anation Advance Care Planning 04/25/2023 Care Teams Quality Analyst Relationship Specialty Start Date End Date Heber Gross MD [address] [place] [address] PCP - General Internal Medicine 07/31/23
--- OUTSIDE RECORDS SUMMARY | 2025-03-24 11:33 | XMS_ITS | Clinical Summary ---
Author Organization [address] Address [address] [place] [address] Care Team Providers Care [employer] Agent Name Role Phone Ariana Nuñez MD Unavailable Néstor Sloan MD Unavailable [phone] Gabrielle Arias Unavailable [phone] Hunter Shepard MD Unavailable [phone] Shantal Jaime MD Unavailable [phone] Tyron Huff MD Unavailable [phone] Ata Oliveira MD Unavailable Addie Francis MD Unavailable Nora Malagon MD Primary Care Provider Vinh Scherer MD Unavailable Michael Weiss MD Unavailable Farnaz Banda MD Unavailable [phone] Femi Lorenzana MD Unavailable Jeanne Laguerre MD Unavailable [phone] John Zarate MD Unavailable [phone] Izzy Padilla MD PhD Unavailable Reid Whipple MD Unavailable OttoLaura ADULT SCHOOL COUNSELOR Unavailable [phone] Peter Ritter MD Unavailable [phone] Otto White MD Unavailable Heber Christianson MD Unavailable Iliana Leonard Unavailable James Gonzalez MD Unavailable Iliana Leonard Unavailable [phone] Delmy Godfrey MD Unavailable Bart Fernando MD, Santana Eros Unavailable + Allergies No known active allergies Medications pen needle, diabetic (BD Ultra-Fine Mini Pen Needle) 31 gauge x 3/16 needle Use 1 Sub Q 1-4x daily as directed 100 each 1 021 Active acetaminophen (TYLENOL) 500 mg tablet Take 1-2 tablets (500-1,000 mg total) by mouth every 8 (eight) hours as needed 021 Active blood-glucose meter kit OneTouch ULTRA glucose meter Dx: E11.9 1 kit 021 Active lancets 31 gauge miscIndications :Type 2 diabetes mellitus without complication, without long-term current use of insulin ([facility]) Test blood sugar once daily 100 each 11 021 Active aspirin 81 mg enteric coated tablet Take 1 tablet (81 mg total) by mouth daily Active ferrous sulfate 325 mg (65 mg of elemental iron) tabletIndicatio ns:Iron Deficiency Anemia Take 1 tablet (325 mg total) by mouth daily with breakfast Active blood glucose diagnostic (OneTouch Verio test strips) strip Use to monitor glucose levels once daily E11.9 100 strip 3 024 Active diclofenac sodium (VOLTAREN) 1 % gel Apply 2 g topically 3 (three) times a day 024 Active semaglutide (Ozempic) 2 mg/dose (8 mg/3 mL) pen injector injectionIndica tions:Type 2 diabetes mellitus with hyperglycemia, with long-term current use of insulin ([facility]) INJECT 2 MG SUBCUTANEOUSLY ONE TIME PER WEEK 2 mL 5 025 Active insulin glargine 100 unit/mL (3 mL) pen for injectionIndica tions:Type 2 diabetes mellitus with hyperglycemia, with long-term current use of insulin ([facility]) Inject 20 Units under the skin every morning 15 mL 1 025 Active escitalopram (LEXAPRO) 20 mg tabletIndicatio ns:Persistent mood disorder TAKE 1 TABLET BY MOUTH EVERY DAY IN THE MORNING 90 tablet 1 025 Active empagliflozin (Jardiance) 10 mg tabletIndicatio ns:Type 2 diabetes mellitus with hyperglycemia, with long-term current use of insulin ([facility]) TAKE 1 TABLET BY MOUTH EVERY DAY 90 tablet 1 025 Active atorvastatin (LIPITOR) 20 mg tabletIndicatio ns:Hyperlipidem ia associated with type 2 diabetes mellitus ([facility]) TAKE 1 TABLET BY MOUTH EVERY DAY 90 tablet 1 025 Active blood glucose diagnostic strip 1 each by other route as directed [address] (CYMBALTA) 30 mg capsule Take 1 capsule (30 mg total) by mouth daily 30 capsule 025 2025 Active Eliquis 5 mg tablet TAKE 1 TABLET BY MOUTH TWICE A DAY 60 tablet 11 025 Active midodrine (PROAMATINE) 2.5 mg tabletIndicatio ns:Symptomatic Orthostatic Hypotension Take 1 tablet (2.5 mg total) by mouth 3 (three) times a day 60 tablet 3 025 Active clonazePAM (KlonoPIN) 0.5 mg tablet Take 2 tablets (1 mg total) by mouth once as needed for anxiety (one hour prior to MRI) for up to 1 dose May take an additional 1-2 tablets at the time of MRI if needed. 4 tablet 025 Active carvediloL (COREG) 6.25 mg tablet TAKE 1/2 TABLET BY MOUTH 2 (TWO) TIMES A DAY WITH MEALS 90 tablet 3 025 Active hydrOXYzine (ATARAX) 25 mg tabletIndicatio ns:Dizziness TAKE 0.5-1 TABLETS (12.5-25 MG TOTAL) BY MOUTH EVERY 8 (EIGHT) HOURS NEEDED (DIZZINESS) 270 tablet 025 Active sildenafiL, pulm.hypertensi on, (REVATIO) 20 mg tabletIndicatio ns:Pulmonary hypertension (HCC) TAKE 2 TABLETS (40 MG TOTAL) BY MOUTH 3 (THREE) TIMES A DAY 540 tablet 3 025 2024 Active insulin glargine 100 unit/mL (3 mL) pen for injectionIndica tions:Type 2 diabetes mellitus with hyperglycemia, with long-term current use of insulin (HCC) Inject 20 Units under the skin care transitions manager before breakfast 15 mL 3 024 2024 Discontinued hydrOXYzine (ATARAX) 25 mg tabletIndicatio ns:Dizziness Take 0.5-1 tablets (12.5-25 mg total) by mouth every 8 (eight) hours as needed (dizziness) 90 tablet 025 2024 Discontinued sildenafiL, pulm.hypertensi on, (REVATIO) 20 mg tabletIndicatio ns:Pulmonary hypertension (HCC) Take 2 tablets (40 mg total) by mouth 3 (three) times a day 180 tablet 2 025 2024 Discontinued Active Problems Problem Noted Date Diagnosed Date Cerebral microvascular disease 02/19/2025 Implantable loop recorder present 01/20/2024 Diabetic polyneuropathy asso ciated with type 2 diabetes mellitus 02/06/2023 Assessment & Plan (02/23/2023 11:28 AM CDT): Protective sensation is absent in her feet. She has moderate symmetrical stocking hypoesthesia in both legs. I think a lot of her gait problem has to do with her diabetic neuropathy. Unfortunately this is not reversible, or only minimally so. I recommended that she follow-up with Dr. Ritter to get her blood sugars under better control. Atherosclerotic heart diseas e of [place] coronary artery with other forms of angina pectoris 08/22/2022 Assessment & Plan (09/14/2023 12:27 PM VESSEL ORDINARY SEAMAN): She is on a good medical regimen. She denies chest pain or pressure, but she does get easily short of breath with exertion. Assessment & Plan (08/23/2022 3:01 PM VESSEL ORDINARY SEAMAN): She has occasional chest pains, not clear that it is angina. She is on medical therapy and has had recent interventions. She will keep her follow ups with cardiology. Chronic heart failure with preserved ejection fr action 06/28/2022 Overview (10/18/2024): Grade 1-2 diastolic dysfunction. Assessment & Plan (10/18/2024 1:08 PM CDT): Chronic, diagnosed several years ago, recommend continuing furosemide 20 mg daily and other medications listed elsewhere. Comanaged with Cardiology. Paroxysmal atrial fibrillation 06/27/2022 Overview (10/08/2023): Continued with dizziness and Dr. Zarate requested loop recorder. Status post [employer] 3 loop recorder insertion on 02 October 2023 (RL). Assessment & Plan (10/16/2024 5:15 AM VESSEL ORDINARY SEAMAN): Chronic, diagnosed 2-3 years ago, recommend continuing carvedilol 3.125 mg twice daily and apixaban 5 mg twice daily. Comanaged with Cardiology. Assessment & Plan (06/03/2024 1:21 PM CDT): First noted two years ago, intermittent. She currently has a regular rhythm. A loop recorder was placed earlier this year due to episodes of dizziness which continue. So far nothing has been reported that indicates recurring atrial fibrillation or other arrhythmia. She will keep her followups with Cardiology, Dr. Zarate. Assessment & Plan (07/29/2022 6:01 PM VESSEL ORDINARY SEAMAN): She was in the hospital recently with Afib and RVR. Rhythm is currently regular. BP is normal. She has little energy, sits around on the couch all day. We encouraged her to increase her activity level as it may help her feel better. Assessment & Plan (07/04/2022 4:04 PM VESSEL ORDINARY SEAMAN): Rate control improved. Continue amiodarone at discharge. Assessment & Plan (07/03/2022 3:02 PM VESSEL ORDINARY SEAMAN): Rate control borderline currently. Should continue to improve with oral amiodarone administration; will monitor. May need to consider increasing carvedilol dose. See below. CKD stage 3b, GFR 30-44 ml/min 06/27/2022 Overview (10/16/2024): EGFR fluctuates. Assessment & Plan (10/18/2024 12:56 PM CDT): Chronic, present for 2-3 or more years, EGFR fluctuates. Recommend avoiding nephrotoxic medications and interventions, and checking follow-up labs periodically. Recommend regular follow-up with Nephrology Dr. White. Lab Results Component Value Date GLUCOSE 195 09/01/2024 CALCIUM 9.4 09/01/2024 SODIUM 140 09/01/2024 POTASSIUM 4.1 09/01/2024 CO2 25 09/01/2024 CHLORIDE 100 09/01/2024 BUNSER 20 09/01/2024 CREATININE 1.44 (H) 09/01/2024 Assessment & Plan (06/06/2024 3:57 PM CDT): Chronic, present for about two years, creatinine fluctuates between stage IIIB to stage IV. Blood pressure is well controlled. She sees Dr. White soon for a follow-up. Return here in three months. Assessment & Plan (02/28/2024 1:48 PM CDT): Chronic, poor control. Creatinine on recent labs is a little higher than her usual baseline. She is not sure when she sees her kidney specialist next. We ordered a BMP to be done before her follow-up here in three months, but if she has kidney labs before that, she can cancel the BMP. Follow-up in three months. Lab Results Component Value Date GLUCOSE 149 02/24/2024 CALCIUM 9.5 02/24/2024 SODIUM 141 02/24/2024 POTASSIUM 3.8 02/24/2024 CO2 27 02/24/2024 CHLORIDE 99 02/24/2024 BUNSER 23 02/24/2024 CREATININE 1.86 (H) 02/24/2024 Assessment & Plan (11/30/2023 4:50 PM CDT): She sees Dr. White. Kidney function is stable but requires close follow-up. We will see her back in three months. Lab Results Component Value Date GLUCOSE 124 11/28/2023 CALCIUM 9.4 11/28/2023 SODIUM 139 11/28/2023 POTASSIUM 4.1 11/28/2023 CO2 29 11/28/2023 CHLORIDE 99 11/28/2023 BUNSER 28 (H) 11/28/2023 CREATININE 1.56 (H) 11/28/2023 Assessment & Plan (08/28/2023 10:17 AM VESSEL ORDINARY SEAMAN): Kidney function is stable. Blood pressure is well controlled. She will keep her followups with nephrology. Lab Results Component Value Date GLUCOSE 163 08/23/2023 CALCIUM 9.3 08/23/2023 SODIUM 141 08/23/2023 POTASSIUM 4.0 08/23/2023 CO2 30 08/23/2023 CHLORIDE 101 08/23/2023 BUNSER 25 08/23/2023 CREATININE 1.70 (H) 08/23/2023 Assessment & Plan (06/04/2023 10:25 AM CDT): Kidney function is stable. She saw her new kidney specialist earlier this week. According to Epic (medication flag), her current kidney function is not adequate for continued Jardiance therapy. She was due for a refill of this medication, but I am deferring a refill until I can discuss this with Nephrology. She seems to have tolerated Jardiance with a similar level of kidney function over the past year or so, so I am not sure why an alert is appearing at this time. Assessment & Plan (11/15/2022 12:37 PM CDT): Her kidney function is not the greatest. Diabetes probably has caused some deterioration. We will refer her to Nephrology for their input and assistance with management. Lab Results Component Value Date GLUCOSE 174 11/12/2022 CALCIUM 9.6 11/12/2022 SODIUM 138 11/12/2022 POTASSIUM 4.1 11/12/2022 CO2 29 11/12/2022 CHLORIDE 97 11/12/2022 BUNSER 33 (H) 11/12/2022 CREATININE 1.88 (H) 11/12/2022 Assessment & Plan (08/23/2022 3:03 PM VESSEL ORDINARY SEAMAN): Creatinine is slightly above her baseline. We reinforced that she must avoid nonsteroidal medications. We will check a follow up BMP in 1 month to see if there is a trend. Follow up in 3 months as scheduled. Assessment & Plan (07/19/2022 3:26 PM VESSEL ORDINARY SEAMAN): She does have some CKD, possibly improved slightly at the time of discharge. We will check labs again in about 10 days to make sure things are stable. Lab Results Component Value Date GLUCOSE 173 07/04/2022 CALCIUM 9.9 07/04/2022 SODIUM 142 07/04/2022 POTASSIUM 4.5 07/04/2022 CO2 31 07/04/2022 CHLORIDE 101 07/04/2022 BUNSER 35 (H) 07/04/2022 CREATININE 1.59 (H) 07/04/2022 Assessment & Plan (07/04/2022 4:03 PM VESSEL ORDINARY SEAMAN): Cr at baseline. Will follow. Not a contraindication to ARB or spironolactone administration, though would monitor closely. Assessment & Plan (07/03/2022 3:07 PM VESSEL ORDINARY SEAMAN): Cr at baseline. Will follow. Not a contraindication to ARB or spironolactone administration, though would monitor closely. Chronic migraine without aur a without status migrainosus, not intractable 08/18/2021 Benign paroxysmal positional vertigo due to bilateral vestibular disorder 08/12/2021 Assessment & Plan (08/28/2023 10:16 AM VESSEL ORDINARY SEAMAN): She experiences vertigo like symptoms, mostly with position changes. We previously referred her to physical therapy, but she says it did not help. I believe the therapy was mostly for her unstable gait. She tends to run into door jam. She has not had any recent falls or injuries. On exam, she is chronically ill and generally deconditioned. There is no baseline or induced nystagmus with position changes. Ear exam is fairly unremarkable with perhaps some mild TM dullness, but no redness.I am not sure if this is truly BPPV or just a side effect of her multiple medical conditions, possibly some cerebral ischemia, and definitely some deconditioning. However, we will give her a trial of meclizine to see if this helps. 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 Zarate. Follow-up cardiac catheterization on 04/30/2022 for chest pain showed patent LAD stent and normal coronaries elsewhere. Nuclear stress test, 05/06/2023: Suboptimal with regard to heart rate. Abnormal Myocardial Perfusion. There is a small [id number] intense mid and apical anterior wall with apical septal segment and apex showing reversible perfusion abnormality, likely consistent with ischemia in the left anterior descending artery distribution noted. Left ventricle: Normal size and systolic function (EF >50%). Assessment & Plan (10/16/2024 5:14 AM VESSEL ORDINARY SEAMAN): Chronic, present for 3-4 or more years, status post LAD stent in 2020. Recommend continuing low-dose aspirin 81 mg daily and other medications listed elsewhere. Assessment & Plan (06/03/2024 1:21 PM CDT): Chronic, controlled on multiple medications including low-dose aspirin, clopidogrel 75 mg daily, and others listed elsewhere. She denies chest pain or pressure. She bruises easily, otherwise seems to be tolerating medications well. Follow-up in three months. Assessment & Plan (02/28/2024 1:51 PM CDT): Chronic, controlled on aspirin 81 mg daily and carvedilol 3.125 mg twice daily. She denies chest pain or pressure. She will keep followups with her construction worker, Dr. Zarate. Assessment & Plan (11/29/2023 2:33 PM CDT): She is on a good medical regimen and denies any chest pain or pressure. She sees Dr. Zarate in the office. She also had a loop recorder placed in September by Dr. Irvin to hopefully catch any abnormal rhythms. Assessment & Plan (08/28/2023 10:18 AM VESSEL ORDINARY SEAMAN): She denies chest pain or pressure. Continue medical therapy. She will keep her follow ups with cardiology. Assessment & Plan (05/17/2023 1:04 PM CDT): About two years ago, she had a cardiac catheterization that showed severe single-vessel coronary artery disease with high-grade stenosis of the left anterior descending. She had a successful angioplasty and stenting of the mid left anterior descending with deployment of 3.0 x 20 mm Synergy stent with good results. A follow-up cardiac catheterization about one year later showed patent stents. She has occasional chest discomfort which is vaguely described. A recent stress test did show some areas of possible reversible ischemia. Her follow-up in Cardiology is at the end of the month. Continue medical therapy for now. We will discuss this issue with Cardiology. Assessment & Plan (11/15/2022 12:38 PM CDT): She is on a good medical regimen. She follows up with Cardiology periodically. Assessment & Plan (07/19/2022 3:26 PM VESSEL ORDINARY SEAMAN): She had a recent heart catheterization at [facility] and things were stable. Continue medical therapy. Assessment & Plan (07/04/2022 4:03 PM VESSEL ORDINARY SEAMAN): ASA, statin as before. Assessment & Plan (07/03/2022 3:08 PM VESSEL ORDINARY SEAMAN): ASA, statin as before. Assessment & Plan (05/17/2022 12:13 PM CDT): She had a follow-up cardiac catheterization about 2-3 weeks ago for some chest pain. It showed that the previously placed LAD stent was patent, as were other wales coronary arteries. LV ejection fraction was normal. She will continue medical therapy. Assessment & Plan (11/13/2021 11:57 AM CDT): She had a stent about six months ago and is on a good medication regimen for this. She has occasional chest pains including one last night which she thinks was due to heartburn. It is mostly gone. She will continue medical therapy and follow ups with Cardiology. Assessment & Plan (08/14/2021 11:16 AM VESSEL ORDINARY SEAMAN): She has occasional chest discomfort when she swallows which is probably due to longstanding esophageal reflux for which she takes omeprazole, otherwise seems to be doing well on medical therapy following a stent for a severely stenotic RCA last year. She will keep her follow ups with Cardiology. Assessment & Plan (06/10/2021 2:17 PM CDT): She had a stent placed about two months ago. She still has chronic chest pains of a vague nature. They are more less constant and could relate to her recent past history of massive pulmonary emboli. She has a right heart catheterization planned for later this year, probably to determine if treatment of pulmonary hypertension would be helpful. It will be done at [facility]. Chronic pain syndrome 11/30/2020 Assessment & Plan (10/18/2024 12:56 PM CDT): Chronic, present for 4-5 or more years, recommend continuing acetaminophen taken as needed. She reports no longer taking duloxetine 20 mg twice daily. Assessment & Plan (03/08/2024 9:14 AM CDT): Chronic, poor control. Various joints hurt. She takes Tylenol as needed. There is no acute joint inflammation in the hands on today's exam (which are her main complaint). She does have some trigger finger problems. We will monitor clinically. She reports that according to her specialists, local steroid injections in her fingers are contraindicated due to her diabetes. For now we will continue Tylenol. Assessment & Plan (11/15/2022 12:36 PM CDT): She is currently relying on Tylenol taken as needed. She seems to be getting along reasonably well. Assessment & Plan (08/19/2021 3:33 PM VESSEL ORDINARY SEAMAN): She complains of pain in multiple joints, today it is especially in her hands. She has an aluminum splint that she moves from one finger to another depending on which hurts the most. Exam is negative for any active inflammatory joint in her hands. She has Tylenol for pain. She has not followed up with pain management recently, Dr. Huff. I suggested she make an appointment with him. We also discussed the option of referral to Rheumatology, but she already has multiple doctors that she has to see, and is not ready for another referral at this time. Assessment & Plan (06/10/2021 2:25 PM CDT): She saw Dr. Antunez. He recommended a pain pump for her chronic low back pain, but she does not want to go that route. She suffers every day from low back pain radiating into the hip girdle. We will continue supportive care and Tylenol as needed. She also complains of trigger finger type symptoms in the right ring finger. We recommended a follow up with Dr. Calixto, hand surgeon, but she is undecided. Pending a decision, we recommended a trial of a splint as needed to immobilize the finger in the extended position. Assessment & Plan (03/27/2021 9:38 AM CDT): Office note, Gwendolyn Maxwell, ANP with Dr. Antunez. Assessment & Plan (02/28/2021 2:09 PM CDT): We referred her to Dr. Antunez for chronic pain, especially in the back. Her appointments have been rescheduled several times while they review the records. Hopefully she will get in soon. Assessment & Plan (01/16/2021 10:49 AM CDT): I think some of the patient's anxiety is due to her chronic pain syndrome. She has a failed back. She probably has pain from osteoporosis and micro fractures. She has some analgesics for use as needed. Ideally she would follow-up with pain management, but apparently several providers have told her they have n othing to offer. We will continue supportive care. Assessment & Plan (12/25/2020 11:50 AM CDT): We are hoping that Cymbalta will help some of her chronic pain. We will get a second opinion on her pain management from Dr. Antunez. Assessment & Plan (12/27/2020 3:09 PM CDT): She is a little more animated and interactive compared to her video visit 2 weeks ago. Hopefully the Cymbalta is helping her pain. We also prescribed a few hydrocodone for use as needed. She still has some on hand. We will see her back in one month. In the meantime, we may have her follow up with Dr. Huff if medical therapy is inadequate. Assessment & Plan (11/30/2020 3:55 PM CDT): Patient presents with multiple reports of pain that is not localized to one region. She follows with pain management and has had kyphoplasty and injections in the past. She was just seen in the ER with c/o of abdominal pain and CT of abdomen pelvis done with no acute findings. In office xray of thoracic spine was done last week that did not reveal any acute fractures. Degenerative disease was noted. She saw pain management this week with repeat injections and has been using hydrocodone with no change or improvement in pain. She has been doing physical therapy as well. This was discussed with Dr. Malagon who recommends stopping her celexa and beginning Cymbalta for both mood and pain that can be up titrated as needed. Also, suggested patient try tumeric for pain or a CBD oil. Patient will return in [address] Malagon for review of pain and mood. Pulmonary hypertension (CMS/HCC) 11/07/2020 Overview (03/20/2021): Due to saddle embolism. Follow up echo on 01/10/2021: Severe pulmonary hypertension based on right ventricular systolic pressure. Estimated peak RVSP is 64 to 68 mmHg. Follow-up pulmonary angiogram on 03/17/2021 negative for blood clot in pulmonary arteries. Assessment & Plan (02/28/2024 1:52 PM CDT): Chronic, improved on sildenafil 40 mg 3 times a day. We corrected the dose in her record. Assessment & Plan (09/14/2023 12:51 PM VESSEL ORDINARY SEAMAN): She is on Revatio. There is no swelling in her legs. Lungs are clear. Assessment & Plan (11/15/2022 12:39 PM CDT): She gets her sildenafil through [facility]. She will probably be on it indefinitely. Assessment & Plan (07/04/2022 4:03 PM VESSEL ORDINARY SEAMAN): PA pressure 55/22 on [facility] 02/2022. Continue Revatio, furosemide. Assessment & Plan (07/03/2022 3:08 PM VESSEL ORDINARY SEAMAN): PA pressure 55/22 on C 02/2022. Continue Revatio, furosemide. Assessment & Plan (08/14/2021 11:13 AM VESSEL ORDINARY SEAMAN): This is likely the consequence of a massive pulmonary embolism. She is followed by Pulmonary Medicine at [facility]. She is on Revatio and Eliquis. Continue same. Assessment & Plan (07/08/2021 3:26 PM VESSEL ORDINARY SEAMAN): Scanned [facility] note, should be in Epic. Assessment & Plan (06/10/2021 2:18 PM CDT): A right heart catheterization is planned for later this year, probably to determine if she would benefit from medication to lower pulmonary pressures. She would also probably benefit from resuming treatment of obstructive sleep apnea. She apparently discussed this with the packaging specialist at [facility], but has not heard yet about any follow-up to resume CPAP. She has a phone visit with Pulmonary Medicine in about a month, and should discuss these issues with him at that time. Assessment & Plan (02/28/2021 2:07 PM CDT): She had echocardiograms recently related to pulmonary emboli and persistent dyspnea with exertion. A follow-up echo about one month ago showed severe pulmonary hypertension with estimated right ventricular systolic pressure readings of 64- 68 mmHg. Resting oxygen saturation on room air is 98%. We walked her around the office and she got as low as 92% on room air. She does not qualify for oxygen with these numbers. She does have a follow-up with Pulmonary Medicine to determine if other treatment might be appropriate such as pulmonary arterial vasodilators. Assessment & Plan (11/08/2020 8:12 AM CDT): - TTE (11/03, 11/04): Moderate RV dysfunction. Pulmonary hypertension. - Weaned off gtts prior to transfer out of ICU - Medicine consulted for further recommendations/transfer: no further recommendations, medically stable for discharge. Psychophysiological insomnia 02/10/2020 Assessment & Plan (11/13/2021 12:05 PM CDT): She needed a refill of trazodone which we sent in. Assessment & Plan (08/14/2021 11:14 AM VESSEL ORDINARY SEAMAN): She is sleeping better on trazodone. We sent in a refill. Arthritis of right knee 10/13/2019 Assessment & Plan (10/13/2019 3:15 PM VESSEL ORDINARY SEAMAN): Patient does have moderate arthritic changes of the right knee with reactive synovitis clinically. Patches of her plain films could be secondary to disuse. Long-term she should try to increase her activities with progressive low-impact exercising. Weight loss would likely be beneficial. After reviewing the treatment options patient elected undergo a cortisone injection today. She tolerated the procedure well. 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 She is already on a beta-[place]lando. We will run this by neurology (her neurologist from [place] left and she no longer wants to travel to [facility]). Perhaps we could add primidone, gabapentin or another medication. On exam today her tremor is really not that bad, mostly a head titubation. There are recent reports of using botulinum toxin for head tremors. I am not sure at this point if she is a candidate for deep brain stimulation due to high risk for having the procedure. Assessment & Plan (12/07/2020 5:32 PM CDT): She has a moderate essential tremor in her hands. She used to take primidone. She was started recently on Eliquis for a large pulmonary embolism, and there is an interaction with primidone so we stopped the latter medication. Her tremor has gotten worse. We are trying a higher dose of beta-orlando to see if he gets better. Follow-up in one week. Assessment & Plan (11/21/2020 4:02 PM CDT): She was previously taking primidone, but there is a potential interaction with Eliquis that would decrease the effectiveness of the blood thinner so we will have her stop the primidone. Exam shows a very mild tremor in her hands at this time, but sometimes she says he gets so bad she can not hold a cup of coffee, so alternative therapy may be needed. Assessment & Plan (10/24/2020 3:21 PM CDT): She complains of shaking i nside and out. Currently she does not have a visible tremor, either resting or postural, except for a very occasional involuntary movement of the left index finger. She has been on primidone prescribed by Neurology which probably is controlling the essential tremor pretty well. Continue same. Assessment & Plan (02/08/2020 9:06 AM CDT): Stable. Cont. Current meds. Dizziness 04/06/2019 Assessment & Plan (01/23/2023 2:38 PM CDT): She has a history of dizziness. It goes back several years or more. It has been worse since she fell and hit her head about a month ago. She describes the room spinning. [place] is positive for symptoms bilaterally, but negative for nystagmus. We will refer her to physical therapy for evaluation and treatment. Assessment & Plan (05/28/2019 9:02 AM CDT): Patient continues to drive although I have advised her not to drive. Referred to neurology for further eval/mgmt. Assessment & Plan (04/06/2019 8:57 PM CDT): Encouraged tighter control of blood sugars. Referred to neurology for further eval. Class 1 obesity due to exces s calories with serious comorbidity and body mass index (BMI) of 32.0 to 32.9 in adult 02/26/2019 Overview (06/03/2024): BMI fluctuates Assessment & Plan (10/16/2024 5:12 AM VESSEL ORDINARY SEAMAN): Chronic, present for 5-6 or more years, recommend continuing semaglutide 2 mg subcutaneous every seven days, attention to diet and hopefully a little bit of weight loss. Assessment & Plan (06/03/2024 1:17 PM CDT): Chronic, uncontrolled, present for many years, for awhile she was losing weight on semaglutide but it seems to have plateaued. HGB A1c is in a good range. We will see her back in three months. Assessment & Plan (11/29/2023 2:33 PM CDT): We encouraged attention to her diet and little bit of weight loss. Assessment & Plan (08/28/2023 10:18 AM VESSEL ORDINARY SEAMAN): We encouraged attention to her diet and continued weight loss which has tapered off even though she is on Ozempic. Assessment & Plan (05/17/2022 12:14 PM CDT): We encouraged continued attention to her diet, and hopefully consistent weight loss. She gets short of breath with minimal exertion, and is probably deconditioned in addition to having other reasons including pulmonary hypertension. Assessment & Plan (11/13/2021 12:01 PM CDT): Her weight is approximately unchanged. I encouraged attention to her diet, and hopefully some weight loss. Assessment & Plan (08/14/2021 11:15 AM VESSEL ORDINARY SEAMAN): Her weight is basically unchanged. We recommended attention to her diet, and hopefully some weight loss. Assessment & Plan (05/19/2021 11:31 AM CDT): Her weight is stable. I encouraged attention to her diet, and hopefully some weight loss. Assessment & Plan (02/16/2021 1:14 PM CDT): We encouraged attention to her diet, and hopefully a little bit of weight loss. Assessment & Plan (10/24/2020 3:21 PM CDT): She is moderately obese. I recommended attention to her diet and a little bit of weight loss. We talked about calorie restrictions, but she says she is t oo old to do that. Assessment & Plan (06/07/2020 1:00 PM CDT): Weight reduction, daily exercise and dietary modifications recommended. Assessment & Plan (02/08/2020 9:08 AM CDT): Weight reduction, daily exercise and dietary modifications recommended. Assessment & Plan (09/27/2019 9:38 PM VESSEL ORDINARY SEAMAN): Unchanged. Encouraged patient to decrease weight, increase daily exercise, and modify diet. Assessment & Plan (05/28/2019 9:02 AM CDT): Unchanged. Encouraged patient to decrease weight, increase daily exercise, and modify diet. Assessment & Plan (02/26/2019 6:12 PM CDT): Unchanged. Encouraged patient to decrease weight, increase daily exercise, and modify diet. Degenerative lumbar spinal stenosis 01/15/2019 Overview (08/27/2023): >>OVERVIEW FOR SACROILIITIS (HCC) WRITTEN ON 08/27/2023 10:02 AM BY NORA MALAGON MD Sacroiliitis entered by pain management, part of spinal DJD, nothing reported on imaging that documents an inflammatory etiology. >>OVERVIEW FOR CHRONIC MIDLINE LOW BACK PAIN WITH BILATERAL SCIATICA WRITTEN ON 10/22/2020 4:45 PM BY NORA MALAGON MD Sees Dr. Shepard. Assessment & Plan (08/27/2023 10:05 AM VESSEL ORDINARY SEAMAN): >>ASSESSMENT AND PLAN FOR LUMBAR POST-LAMINECTOMY SYNDROME WRITTEN ON 10/24/2020 3:16 PM BY NORA MALAGON MD She has longstanding problems with her back including some compression fractures which I believe were treated with vertebroplasty. I will review the record in more detail. Currently she is not requiring any narcotic medications or much in the way of pain medications at all. She does see Dr. Lozoya periodically. Assessment & Plan (08/27/2023 10:05 AM VESSEL ORDINARY SEAMAN): >>ASSESSMENT AND PLAN FOR LUMBAR POST-LAMINECTOMY SYNDROME WRITTEN ON 01/23/2023 2:40 PM BY NORA MALAGON MD She had a vertebroplasty at T11 a number of years ago. This could be the area of right flank pain she is experiencing currently. It started about four days ago. We will re-evaluate with thoracic and lumbar films and have her follow-up with pain management. Assessment & Plan (08/27/2023 10:05 AM VESSEL ORDINARY SEAMAN): >>ASSESSMENT AND PLAN FOR LUMBAR RADICULOPATHY WRITTEN ON 12/07/2020 5:30 PM BY NORA MALAGON MD She continues to have severe low back pain with radicular symptoms. It is affecting her quality of life and her mood. She saw Dr. Huff about two weeks ago. He gave her an injection which did not help. We gave her a one week supply of hydrocodone to help her cope pending pain management consultation (they told her there was nothing to offer her). We will arrange for a second opinion for chronic pain management with Dr. Antunez. In the meantime, we did start her on duloxetine/Cymbalta which we will escalate if not effective after another week or so of treatment. Perhaps it will also improve her mood. Assessment & Plan (08/27/2023 10:04 AM VESSEL ORDINARY SEAMAN): >>ASSESSMENT AND PLAN FOR CHRONIC MIDLINE LOW BACK PAIN WITH BILATERAL SCIATICA WRITTEN ON 02/26/2019 6:11 PM BY LINWOOD POND DO Followed by pain mgmt. Patient receiving spinal injections. Assessment & Plan (08/27/2023 10:03 AM VESSEL ORDINARY SEAMAN): >>ASSESSMENT AND PLAN FOR SACROILIITIS (HCC) WRITTEN ON 10/13/2019 3:14 PM BY HUNTER SHEPARD MD Patient has point tenderness at the sacroiliac joint with arthritic changes radiographically. She would likely benefit from pain management referral was provided. Assessment & Plan (08/27/2023 10:05 AM VESSEL ORDINARY SEAMAN): >>ASSESSMENT AND PLAN FOR DEGENERATIVE LUMBAR SPINAL STENOSIS WRITTEN ON 08/27/2023 10:03 AM BY NORA MALAGON MD >>ASSESSMENT AND PLAN FOR SACROILIITIS (HCC) WRITTEN ON 11/21/2020 3:58 PM BY NORA MALAGON MD She has chronic low back pain as well as some midback pain. She plans to follow- up with her pain management physician, Dr. Huff. >>ASSESSMENT AND PLAN FOR LUMBAR POST-LAMINECTOMY SYNDROME WRITTEN ON 11/21/2020 4:01 PM BY NORA MALAGON MD About two days ago, she developed rather abrupt onset of a bandlike pain extending from the lower thoracic or upper lumbar area to the left upper quadrant. Sometimes she feels it on both sides of the upper abdomen. Exam is unremarkable except for postoperative scars overlying the spine as well as a bony protuberance at about T12 or L1 which also appears chronic. There is no localized redness, rash, tenderness. She has a normal appearing gait and grossly normal strength. She denies having any urinary symptoms such as burning or blood in the urine. She is on blood thinners, so a localized hemorrhage is a consideration. We discussed the options for further evaluation including urinalysis, stone protocol CT scan, and others. The patient prefers to see how things go and call for early follow-up if the pain does not resolve. I also suggested a follow-up with her pain specialist to see they have any suggestions for further workup or treatment. Assessment & Plan (08/27/2023 10:03 AM VESSEL ORDINARY SEAMAN): >>ASSESSMENT AND PLAN FOR SACROILIITIS (HCC) WRITTEN ON 11/13/2021 12:03 PM BY NORA MALAGON MD She has a lot of chronic pain. She takes Tylenol as needed. Duloxetine was stopped, reasons are unclear. Assessment & Plan (08/27/2023 10:03 AM VESSEL ORDINARY SEAMAN): >>ASSESSMENT AND PLAN FOR SACROILIITIS (HCC) WRITTEN ON 09/04/2022 10:52 AM BY NORA MALAGON MD She is not taking Cymbalta. We will monitor clinically. Assessment & Plan (02/06/2023 12:07 PM CDT): Her degenerative lumbar spinal stenosis could be contributing to her gait problems. Strength seems pretty good though. We will get her in with physical therapy to improve strength and balance, and also get some education on use of a cane which she so far finds is more trouble than help. Persistent mood disorder 06/09/2018 Assessment & Plan (10/18/2024 12:59 PM CDT): Chronic, resistant to treatment. She discontinued duloxetine for unknown reasons, probably to reduce her pill burden as she reports being tired of taking so many medications, recommend regular office followups and supportive care. Assessment & Plan (06/06/2024 4:03 PM CDT): Chronic, present for more than five years, uncontrolled on escitalopram 10 mg daily. She used to take duloxetine as well, but it was discontinued for uncertain reasons, possibly side effects. Currently she says l karin is not fun due to her multiple medical problems, chronic pain issues and being socially isolated. We provided supportive care. Assessment & Plan (02/28/2024 1:52 PM CDT): Chronic, fair control f or an old woman who can not get out much. Her mood does seem a little better to me than a couple of years ago, but she does still struggle with multiple chronic conditions and chronic pain. We will keep her on escitalopram 20 mg daily. She no longer takes duloxetine. Assessment & Plan (11/30/2023 4:46 PM CDT): She says her mood is good. She stays at home mostly because of all of her dizziness. She gets help from her [id number]. She is expecting a new great grand baby soon but they live in [place] of [place]. Assessment & Plan (08/28/2023 10:19 AM VESSEL ORDINARY SEAMAN): She is on Lexapro and amitriptyline. She complains of a dry mouth. Mood seems stable. Assessment & Plan (08/27/2023 10:08 AM VESSEL ORDINARY SEAMAN): >>ASSESSMENT AND PLAN FOR GENERALIZED ANXIETY DISORDER WRITTEN ON 06/09/2018 5:44 PM BY LINWOOD POND DO Psychological condition is improving with treatment. Regular aerobic exercise. Medication changes per orders. D/C Xanax, switch to clonazepam. Notify physician and any worrisome s/sxs. Psychological condition will be reassessed at the next regular appointment. Assessment & Plan (08/27/2023 10:08 AM VESSEL ORDINARY SEAMAN): >>ASSESSMENT AND PLAN FOR GENERALIZED ANXIETY DISORDER WRITTEN ON 01/12/2019 7:51 AM BY LINWOOD POND DO Psychological condition is improving with treatment. Continue current treatment regimen. Regular aerobic exercise. Psychological condition will be reassessed at next appt. Klonopin 0.5 mg bid Assessment & Plan (08/27/2023 10:08 AM VESSEL ORDINARY SEAMAN): >>ASSESSMENT AND PLAN FOR GENERALIZED ANXIETY DISORDER WRITTEN ON 09/27/2019 9:37 PM BY LINWOOD POND DO Clinically improved, continue current meds. Assessment & Plan (08/27/2023 10:08 AM VESSEL ORDINARY SEAMAN): >>ASSESSMENT AND PLAN FOR GENERALIZED ANXIETY DISORDER WRITTEN ON 06/07/2020 12:58 PM BY LINWOOD POND, Clinically improved, continue current meds. Assessment & Plan (08/27/2023 10:08 AM VESSEL ORDINARY SEAMAN): >>ASSESSMENT AND PLAN FOR GENERALIZED ANXIETY DISORDER WRITTEN ON 11/01/2020 11:27 AM BY NORA MALAGON MD She has a long history of generalized anxiety. She says Xanax was her m iracle drug for years. It kept her feeling stable inside. At one point, the Xanax was stopped and she was placed on Klonopin 0.5 mg twice a day. She says this does not help her anxiety. She has a tremor inside her. On exam today, her affect is somewhat flat but she does not seem overly anxious. Ideally we would like to get her off of the Klonopin due to her age and risks at her age, and since it is not terribly effective we will probably start tapering it. She also takes citalopram and I recommended restricting the dose to 20 mg a day. We will see her back in three months to see how she is doing. Assessment & Plan (08/27/2023 10:08 AM VESSEL ORDINARY SEAMAN): >>ASSESSMENT AND PLAN FOR GENERALIZED ANXIETY DISORDER WRITTEN ON 12/28/2020 4:47 PM BY DESI US NP Patient is reporting feeling increasingly anxious and depressed. She feels symptoms worsened after beginning cymbalta. We will stop her cymbalta and have her resume her celexa which she tolerated in the past. She has upcoming follow up with psychiatry in February, but will see sooner to evaluate anxiety and its associated symptoms. Assessment & Plan (08/27/2023 10:08 AM VESSEL ORDINARY SEAMAN): >>ASSESSMENT AND PLAN FOR GENERALIZED ANXIETY DISORDER WRITTEN ON 06/04/2023 10:26 AM BY NORA MALAGON MD She says her mood is okay and overall her demeanor does seem improved. She is a little more at ease. She is on Lexapro. Continue same. Assessment & Plan (11/19/2022 8:18 AM CDT): She says her mood is pretty good. She has lots of medical problems, but i t is what it is. She is on Lexapro. Continue same. Assessment & Plan (08/23/2022 3:05 PM VESSEL ORDINARY SEAMAN): She says her mood is good these days, usually sleeps pretty well. We will continue medications and supportive care. Assessment & Plan (07/19/2022 3:27 PM VESSEL ORDINARY SEAMAN): She brought her medications to the office and Lexapro is not included. She denies feeling blue or depressed, but her son says that she just sits around all day, goes from couch to bed, is not doing anything active. We sent in a refill in case she ran out or misplaced her medication. Assessment & Plan (05/17/2022 12:14 PM CDT): She says her mood is good on current therapy consisting of Lexapro and BuSpar. Continue same. Assessment & Plan (12/09/2021 4:01 PM CDT): She continues to struggle with her mood. We gave her refill of trazodone which helps her to sleep at night. She was also started on nightly amitriptyline by her neurologist in [place]. This was in lieu of topiramate which she stopped taking because of side effects. She complains of a dry mouth which could be a side effect of one or more of her medications. Assessment & Plan (08/19/2021 3:31 PM VESSEL ORDINARY SEAMAN): Her mood seems improved by my reckoning. She also thinks she is feeling a little better f or an old woman who sits at home all day. She plays a lot of [employer]. She does not want to go back to Psychiatry, so we will see her back in three months. We refilled some medications for her. Assessment & Plan (05/19/2021 11:31 AM CDT): She is seeing Dr. Weiss who has her on several medications. A phone visit is planned for later this month. She is not sure her mood is any better. Trazodone helped her sleep for awhile, but it is no longer as effective. She will discuss all these issues with Dr. Weiss. Assessment & Plan (02/16/2021 1:11 PM CDT): She saw Dr. Weiss. He kept her on BuSpar. He changed citalopram to escitalopram. She says her mood is fair. She will keep her follow ups with Dr. Weiss. Assessment & Plan (02/13/2021 4:04 PM CDT): Scanned office note dated 02/09/2021, Dr. Weiss. Assessment & Plan (08/27/2023 10:08 AM VESSEL ORDINARY SEAMAN): >>ASSESSMENT AND PLAN FOR PERSISTENT MOOD DISORDER (HCC) WRITTEN ON 01/16/2021 10:48 AM BY NORA MALAGON MD She continues to have fairly severe anxiety. She has trouble sleeping. She says she only gets about 2 hours of sleep a night. We have been adjusting her medications for mood, hoping to find the right combination for her. Today we increased the BuSpar from 5 mg twice a day to 5 mg 3 times a day. We had previously lowered citalopram from 40 mg to 20 mg to hopefully avoid anticholinergic side effects, and she further reduced the dose on her own to 10 mg so we changed the medication list to reflect which she is taking and sent in a refill for the lower dose of citalopram. We will see her back in one month to see how she is doing. >>ASSESSMENT AND PLAN FOR GENERALIZED ANXIETY DISORDER WRITTEN ON 01/16/2021 10:48 AM BY NORA MALAGON MD Her anxiety is fairly severe. I am not sure what else to offer other than continued dose manipulations and trials of alternate medications. I believe she is scheduled to see Dr. Weiss soon. Assessment & Plan (08/27/2023 10:08 AM VESSEL ORDINARY SEAMAN): >>ASSESSMENT AND PLAN FOR PERSISTENT MOOD DISORDER (HCC) WRITTEN ON 12/27/2020 3:07 PM BY NORA MALAGON MD She has been morbidly depressed because of her chronic pain. She actually seems a little better today compared to her video visit about two weeks ago. She is a little more animated. These Cymbalta may be helping. We will increase the dose and see her back in about one month. >>ASSESSMENT AND PLAN FOR GENERALIZED ANXIETY DISORDER WRITTEN ON 12/19/2020 2:24 PM BY NORA MALAGON MD She seems a little more settled. She was able to drive to the office today. Continue Cymbalta. Assessment & Plan (12/07/2020 5:36 PM CDT): She appears to be morbidly depressed. Her speech is constricted but fluent. Her emotional range is very limited. She has psychomotor retardation. Apparently she has had problems with her mood off and on in the past, frequently related to flares of her chronic back pain. She has a failed back syndrome. Nothing seems to be working for her pain. We changed her from Celexa to Cymbalta recently hoping that this Cymbalta might double as a pain modifier and antidepressant, but so far there has not been any significant improvement. It has been about a week. We will reassess next week and if still problematic, most likely increase the dose of Cymbalta. In the meantime, I did discuss and recommend she consider psychiatric therapy, but she seems indecisive at this time. We will revisit this periodically. Assessment & Plan (11/30/2020 3:58 PM CDT): Patient continues to struggle with her depression which is most likely worsened by her uncontrolled pain and lack of social support. Have discussed with Dr. Malagon and we will stop her celexa and transition to Cymbalta. Dose will be increased as needed per patient re-evaluation in 2 weeks or sooner if needed. Assessment & Plan (11/24/2020 3:35 PM CDT): Patient reports since her recent hospitalization she has had increasing feelings of depression. She reports she does not have a great support system and that her back pain has exacerbated things. She does admit she made comments today to her OT that she didn't want to be here. She states however, that she has no plan or thoughts of self harm. She states she just cannot tolerate the pain. We will begin better pain management strategies and re-evaluate at next visit or sooner if needed. Age-related osteoporosis jihan ansari current pathological fracture 12/26/2017 Overview (10/22/2020): On Reclast per office notes. Assessment & Plan (05/17/2023 12:55 PM CDT): She takes calcium and vitamin-D. I believe she is also getting annual infusions of Reclast. We will monitor clinically. Assessment & Plan (02/04/2023 6:49 PM CDT): Continue vitamin-D supplementation. She was also previously on Reclast but I do not see it on her current medication list. We will check the records. Assessment & Plan (11/13/2021 12:05 PM CDT): She gets Reclast as well as calcium and vitamin-D supplements. Continue same. Assessment & Plan (10/24/2020 3:22 PM CDT): She has to be on Forteo. She was switched to Reclast about a year ago and has had two doses. She sees a bone specialist in [facility]. She also takes calcium and vitamin-D. Assessment & Plan (06/07/2020 12:59 PM CDT): Patient on Reclast. Assessment & Plan (02/26/2019 6:10 PM CDT): Cont calcium supplements, weight bearing exercises as tolerated. Continue Forteo. HTN (hypertension), benign 12/09/2017 Assessment & Plan (10/17/2024 4:51 PM VESSEL ORDINARY SEAMAN): Chronic, present for 6-7 or more years, recommend continuing losartan 12.5 mg daily, carvedilol 3.125 mg twice daily, and spironolactone 12.5 mg daily. BP: 124/70 Lab Results Component Value Date GLUCOSE 195 09/01/2024 CALCIUM 9.4 09/01/2024 SODIUM 140 09/01/2024 POTASSIUM 4.1 09/01/2024 CO2 25 09/01/2024 CHLORIDE 100 09/01/2024 BUNSER 20 09/01/2024 CREATININE 1.44 (H) 09/01/2024 Assessment & Plan (06/03/2024 1:19 PM CDT): Chronic, present for more than five years, controlled on carvedilol 6.25 mg, 1/2 tablet twice daily and losartan 25 mg, 1/2 tablet daily. She also takes spironolactone 25 mg, 1/2 tablet daily. Continue same and follow-up in three months. Lab Results Component Value Date GLUCOSE 183 05/28/2024 GLUCOSE 181 05/28/2024 CALCIUM 9.7 05/28/2024 CALCIUM 9.7 05/28/2024 SODIUM 139 05/28/2024 SODIUM 139 05/28/2024 POTASSIUM 4.0 05/28/2024 POTASSIUM 4.0 05/28/2024 CO2 27 05/28/2024 CO2 26 05/28/2024 CHLORIDE 99 05/28/2024 CHLORIDE 99 05/28/2024 BUNSER 20 05/28/2024 BUNSER 20 05/28/2024 CREATININE 1.52 (H) 05/28/2024 CREATININE 1.49 (H) 05/28/2024 Assessment & Plan (02/28/2024 1:50 PM CDT): Chronic, controlled on carvedilol 3.125 mg twice a day and losartan 12.5 mg daily. Continue same. Assessment & Plan (11/29/2023 2:32 PM CDT): Blood pressure is somewhat borderline, ideally it should be lower but she is on multiple medications already and has a lot of dizziness and lightheadedness. We are deferring any medication changes to Nephrology. Assessment & Plan (08/28/2023 10:18 AM VESSEL ORDINARY SEAMAN): Initial blood pressure in the office was mildly elevated, but a follow-up by me is well within normal limits and is consistent with readings she gets at home. Assessment & Plan (05/17/2023 1:02 PM CDT): Blood pressure is well controlled on current therapy. Continue same. Assessment & Plan (11/15/2022 12:38 PM CDT): Blood pressure is in a good range. She denies chest pain or pressure. Continue current therapy, and follow-up in six months. Assessment & Plan (08/23/2022 3:05 PM VESSEL ORDINARY SEAMAN): Blood pressure is in a good range. Continue current therapy. She was uncertain about some of the medications on her list. She brought an old list to the visit, but not her bottles. We will check with her by phone tomorrow to clarify things. Assessment & Plan (05/17/2022 12:13 PM CDT): Blood pressure is in a good range on current therapy. Continue same and follow- up in six months. Assessment & Plan (11/13/2021 11:58 AM CDT): Blood pressure is in a good range on current therapy. Continue same. Kidney function showed a slight decrease. Her diuretic dose was increased recently because of shortness of breath and an elevated BNP. We will check a follow-up lab before her next visit. She also has frequent visits with other specialists. Lab Results Component Value Date GLUCOSE 123 11/08/2021 CALCIUM 9.3 11/08/2021 SODIUM 139 11/08/2021 POTASSIUM 4.3 11/08/2021 CO2 31 11/08/2021 CHLORIDE 97 11/08/2021 BUNSER 29 (H) 11/08/2021 CREATININE 1.56 (H) 11/08/2021 Assessment & Plan (08/14/2021 11:16 AM VESSEL ORDINARY SEAMAN): Blood pressure is in a good range on current therapy. Exam and labs are stable. Follow-up in three months. Lab Results Component Value Date GLUCOSE 154 05/22/2021 CALCIUM 9.5 05/22/2021 SODIUM 138 05/22/2021 POTASSIUM 4.2 05/22/2021 CO2 24 05/22/2021 CHLORIDE 101 05/22/2021 BUNSER 10 05/22/2021 CREATININE 0.94 05/22/2021 Assessment & Plan (06/10/2021 2:15 PM CDT): Pressure is in a good range on current therapy. Her creatinine is relatively stable and is being monitored closely. Continue current therapy. Lab Results Component Value Date GLUCOSE 141 05/12/2021 CALCIUM 9.0 05/12/2021 SODIUM 138 05/12/2021 POTASSIUM 3.9 05/12/2021 CO2 25 05/12/2021 CHLORIDE 100 05/12/2021 BUNSER 15 05/12/2021 CREATININE 1.22 (H) 05/12/2021 Assessment & Plan (02/16/2021 1:14 PM CDT): Blood pressure is in a good range on current therapy. Continue same, and follow- up in 3 months. Assessment & Plan (01/13/2021 2:40 PM CDT): Her blood pressure is in a reasonable range at this time on current therapy. Continue same. Assessment & Plan (12/19/2020 2:23 PM CDT): Blood pressure is in a good range. She is not currently requiring active therapy. We will see her back in one month. Assessment & Plan (12/25/2020 11:46 AM CDT): Blood pressure in the ER a few days ago was moderately elevated. This could be partly due to the chronic pain she is dealing with. Pulse rate should allow for a higher dose of beta-orlando which we started today. The beta-orlando may also help her essential tremor, see discussion elsewhere. Assessment & Plan (11/21/2020 4:01 PM CDT): Blood pressure is in a good range on current therapy. Continue same. Assessment & Plan (11/01/2020 11:25 AM CDT): Blood pressure is in a good range on a beta-orlando. There was a little uncertainty about her dose, but we tried to straighten this out today with more explicit instructions. Assessment & Plan (06/07/2020 12:57 PM CDT): Stable. Cont. Current meds. Assessment & Plan (02/02/2020 3:35 PM CDT): Clinically improved, continue current meds. Assessment & Plan (09/27/2019 9:36 PM VESSEL ORDINARY SEAMAN): Within normal range, cont current meds. Assessment & Plan (02/26/2019 6:05 PM CDT): Worsening, low sodium diet recommended. Cont metoprolol 25 mg bid. Assessment & Plan (01/12/2019 7:53 AM CDT): Hypertension is worsening. Dietary sodium restriction. Weight loss. Regular aerobic exercise. Continue current medications. Ambulatory blood pressure monitoring. Blood pressure will be reassessed at the next regular appointment. Metoprolol 25 mg bid; consider increasing meds if bp not at goal of < 150/90. Assessment & Plan (06/09/2018 5:41 PM CDT): Hypertension is improving with treatment. Continue current treatment regimen. Dietary sodium restriction. Weight loss. Regular aerobic exercise. Continue current medications. Blood pressure will be reassessed at the next regular appointment. Hyperlipidemia associated with type 2 diabetes karel kim 12/09/2017 Assessment & Plan (10/16/2024 5:18 AM VESSEL ORDINARY SEAMAN): Chronic, present for 6-7 or more years, recommend continuing atorvastatin 20 mg daily and low saturated fat diet. Lab Results Component Value Date CHOL 137 09/01/2024 CHOL 138 02/24/2024 CHOL 157 11/12/2022 Lab Results Component Value Date HDL 60 09/01/2024 HDL 64 02/24/2024 HDL 61 11/12/2022 Lab Results Component Value Date LDLCALC 58 09/01/2024 LDLCALC 58 02/24/2024 LDLCALC 75 11/12/2022 LDL 48 01/10/2013 Lab Results Component Value Date TRIG 101 09/01/2024 TRIG 78 02/24/2024 TRIG 105 11/12/2022 Lab Results Component Value Date ALT 12 09/01/2024 AST 30 09/01/2024 ALKPHOS 81 09/01/2024 BILITOT 0.4 09/01/2024 Assessment & Plan (06/03/2024 1:18 PM CDT): Chronic, controlled on atorvastatin 20 mg daily. We ordered labs to be done before her next visit in 3 months. Assessment & Plan (02/28/2024 1:49 PM CDT): Chronic, good control on generic Lipitor 20 mg daily. Continue same. Lab Results Component Value Date CHOL 138 02/24/2024 CHOL 157 11/12/2022 CHOL 156 11/08/2021 Lab Results Component Value Date HDL 64 02/24/2024 HDL 61 11/12/2022 HDL 71 11/08/2021 Lab Results Component Value Date LDLCALC 58 02/24/2024 LDLCALC 75 11/12/2022 LDLCALC 68 11/08/2021 LDL 48 01/10/2013 Lab Results Component Value Date TRIG 78 02/24/2024 TRIG 105 11/12/2022 TRIG 87 11/08/2021 Lab Results Component Value Date ALT 28 02/24/2024 AST 41 02/24/2024 ALKPHOS 64 02/24/2024 BILITOT 0.7 02/24/2024 Assessment & Plan (11/29/2023 2:32 PM CDT): She is tolerating generic Lipitor. We will check fasting lipids before her next visit in three months. Assessment & Plan (08/28/2023 10:18 AM VESSEL ORDINARY SEAMAN): She continues on generic Lipitor, seems to be tolerating it well. Assessment & Plan (05/17/2023 12:58 PM CDT): She is on generic Lipitor, tolerating well. Continue same. We will check fasting labs before her next visit in about three months. Assessment & Plan (11/15/2022 12:38 PM CDT): She is on generic Lipitor, tolerating well. Lipids look pretty good. There are mild elevations of transaminases which could be due to fatty liver or possibly a side effect of statin therapy. We will continue to monitor periodically. Lab Results Component Value Date CHOL 157 11/12/2022 CHOL 156 11/08/2021 CHOL 118 11/03/2020 Lab Results Component Value Date HDL 61 11/12/2022 HDL 71 11/08/2021 HDL 46 11/03/2020 Lab Results Component Value Date LDLCALC 75 11/12/2022 LDLCALC 68 11/08/2021 LDLCALC 50 11/03/2020 LDL 48 01/10/2013 Lab Results Component Value Date TRIG 105 11/12/2022 TRIG 87 11/08/2021 TRIG 109 11/03/2020 Lab Results Component Value Date ALT 51 (H) 11/12/2022 AST 48 (H) 11/12/2022 ALKPHOS 70 11/12/2022 BILITOT 0.6 11/12/2022 Assessment & Plan (08/23/2022 3:04 PM VESSEL ORDINARY SEAMAN): She is tolerating generic Lipitor. Follow up lipids ordered to be done before her next visit in November. Assessment & Plan (07/19/2022 3:26 PM VESSEL ORDINARY SEAMAN): She takes generic Lipitor, tolerating well. Continue same. Assessment & Plan (05/17/2022 12:12 PM CDT): She is on generic Lipitor, seems to be tolerating it well. We will check fasting labs before her next visit in six months. Assessment & Plan (11/13/2021 11:59 AM CDT): She is on generic Lipitor, seems to be tolerating it well. Continue same. Assessment & Plan (08/14/2021 11:17 AM VESSEL ORDINARY SEAMAN): She is on a standard dose Lipitor, tolerating well. Continue same. Assessment & Plan (05/19/2021 11:29 AM CDT): She is on generic lipitor, tolerating well. Continue same. Assessment & Plan (02/16/2021 1:14 PM CDT): She used to take a medicine for cholesterol, but it dropped off her list for some reason. She is willing to resume therapy so we sent in generic Lipitor 20 mg. Assessment & Plan (11/21/2020 4:01 PM CDT): She is tolerating generic Zocor. Continue same. Assessment & Plan (10/24/2020 3:19 PM CDT): She is on generic Zocor and seems to be tolerating it well. Continue same. Check lipids periodically. Assessment & Plan (08/23/2020 12:24 PM VESSEL ORDINARY SEAMAN): Under control with Simvastatin Plan: Continue plan Continue follow up with PCP. Assessment & Plan (06/07/2020 12:57 PM CDT): Stable. Cont. Current meds. Assessment & Plan (05/17/2020 11:05 AM CDT): Under control with medication. Plan: Continue plan Continue follow up with PCP. Assessment & Plan (02/09/2020 11:11 AM CDT): Under control with medication. Plan: Continue plan Continue follow up with PCP. Assessment & Plan (02/08/2020 9:06 AM CDT): Stable. Cont. Current meds. Assessment & Plan (09/27/2019 9:36 PM VESSEL ORDINARY SEAMAN): Stable. Cont. Current meds. Assessment & Plan (02/26/2019 6:05 PM CDT): Clinically improved, continue current meds. Simvastatin 40 mg qhs. Assessment & Plan (06/09/2018 5:41 PM CDT): Lipid abnormalities are unchanged. Nutritional counseling was provided. and Pharmacotherapy as ordered. Lipids will be reassessed 4 months. GERD (gastroesophageal reflux disease) 8 Overview (10/22/2020): On omeprazole, symptoms controlled per office notes. Assessment & Plan (11/13/2021 12:02 PM CDT): She takes omeprazole every day, but still gets heartburn type symptoms. She also has dysphagia which is a long-term type of symptom. She had a Khari fundoplication about 10 years ago. She had an endoscopy about four years ago which showed esophagitis and an intact Khari. Assessment & Plan (06/07/2020 12:58 PM CDT): Asx. Continue current therapy. Assessment & Plan (02/08/2020 9:06 AM CDT): Asx. Continue current therapy. Assessment & Plan (09/27/2019 9:36 PM VESSEL ORDINARY SEAMAN): Asx. Continue current therapy. Assessment & Plan (02/26/2019 6:05 PM CDT): Stable. Cont. Current meds. Omeprazole 40 mg qd Assessment & Plan (06/09/2018 5:43 PM CDT): Stable. Cont. Current meds. Antacids prn. Type 2 diabetes mellitus wit h hyperglycemia, with long-term current use of insulin 02/10/2000 Overview (10/24/2020): Used to see Dr. Gordon. Assessment & Plan (10/16/2024 5:17 AM VESSEL ORDINARY SEAMAN): Chronic, diagnosed 25 years ago, recommend continuing insulin glargine 20 units q.a.m., semaglutide 2 mg subcu every seven days, and empagliflozin 10 mg daily. Lab Results Component Value Date HGBA1C 7.5 (H) 09/01/2024 HGBA1C 6.4 (H) 02/24/2024 HGBA1C 7.6 (H) 11/28/2023 Lab Results Component Value Date MICROALBUR <12.0 10/21/2018 LDLCALC 58 09/01/2024 CREATININE 1.44 (H) 09/01/2024 Assessment & Plan (06/03/2024 1:24 PM CDT): Chronic, controlled on semaglutide 2 mg weekly and dapagliflozin 10 mg daily. She also takes insulin glargine 20 units in the morning. HGB A1c is in a good range. Continue same and monitor labs regularly. Lab Results Component Value Date HGBA1C 6.4 (H) 02/24/2024 HGBA1C 7.6 (H) 11/28/2023 HGBA1C 7.9 (H) 08/23/2023 Lab Results Component Value Date MICROALBUR <12.0 10/21/2018 LDLCALC 58 02/24/2024 CREATININE 1.52 (H) 05/28/2024 CREATININE 1.49 (H) 05/28/2024 Assessment & Plan (02/28/2024 1:54 PM CDT): Chronic, poorly controlled on Jardiance 10 mg daily and Ozempic 2 mg weekly. Expense is a problem with these two drugs, as well as for Eliquis. We will arrange for her to talk to Mili Valencia, our quality nurse, about drug assistance programs Lab Results Component Value Date HGBA1C 6.4 (H) 02/24/2024 HGBA1C 7.6 (H) 11/28/2023 HGBA1C 7.9 (H) 08/23/2023 Lab Results Component Value Date MICROALBUR <12.0 10/21/2018 LDLCALC 58 02/24/2024 CREATININE 1.86 (H) 02/24/2024 Assessment & Plan (11/30/2023 4:46 PM CDT): She brought in home blood sugar readings which generally so fairly good control, most are 140 mg/dL or less. HGB A1c is acceptable, but above the goal of less than 7.0%, so we did venture to increase her Ozempic from 1 mg weekly to 2 mg weekly. We will see her back in three months. Lab Results Component Value Date HGBA1C 7.6 (H) 11/28/2023 Assessment & Plan (09/14/2023 1:01 PM VESSEL ORDINARY SEAMAN): Morning blood sugars are between 100-140 mg/dL, sometimes a little higher later in the day. Recent hemoglobin A1c is slightly above an optimal range. She wondered if she could have surgery on trigger fingers, and that would be up to orthopedics regarding their cut off level for hemoglobin A1c. We will check again in three months. Lab Results Component Value Date HGBA1C 7.9 (H) 08/23/2023 Assessment & Plan (05/17/2023 1:06 PM CDT): Diabetes is pretty well controlled on current therapy including 20 units of insulin glargine daily and Ozempic 1 mg weekly. However, we are stopping the Jardiance for the time being which might affect glycemic control. We may need to increase the insulin dose. We will check in with her sometime next week about blood sugars. Lab Results Component Value Date HGBA1C 7.1 (H) 05/13/2023 HGBA1C 6.8 03/21/2023 HGBA1C 8.6 (H) 11/12/2022 Lab Results Component Value Date MICROALBUR <12.0 10/21/2018 LDLCALC 75 11/12/2022 CREATININE 1.74 (H) 05/13/2023 Assessment & Plan (03/21/2023 11:41 AM CDT): Diagnosed more than 25 years ago Started [...] to see Rita Sommers NP if needed. Assessment & Plan (01/23/2023 2:39 PM CDT): She has numbness in her feet, probably diabetic neuropathy. This makes her feel unsteady on her feet. She walks with a walker or cane. She had a fall one month ago which was evaluated in the emergency room, but no falls since then. Assessment & Plan (01/18/2023 12:04 PM CDT): Diagnosed more than 25 years ago Started on insulin in March 2019 Control : not controlled- Ozempic added in November/2022 A1c 8.6% on 11/12/22 A1c 6.4% on 08/23/20. A1c 5.9% on 05/17/2020 Kidney: CKD- GFR of 27 On 11/12/22 Plan: Patient to continue diet plan. Patient to use insulin only once /day- 20 units Qam Continue Jardiance Increase Ozempic to 0.5 mg /week Monitor sugars 3 x per day- bring records. Hypoglycemia symptoms and treatment reviewed with patient. Call if having low sugars. Ophthalmology exam on regular basis. Assessment & Plan (11/19/2022 8:19 AM CDT): She only checks blood sugars once or twice a day. They generally run a little on the high side, around 150-200 mg/dL. HbA1c is little high. We added Ozempic to her regimen, risks of medication discussed. We will also refer her to Dr. Ritter for assistance and management. She has seen him before, but not recently. Assessment & Plan (08/23/2022 3:07 PM VESSEL ORDINARY SEAMAN): She does not check blood sugars regularly. She gives herself 10-15 units of Lantus if evening blood sugar is >150. We will check follow up diabetic labs in 4 months. Lab Results Component Value Date HGBA1C 7.8 (H) 05/14/2022 Assessment & Plan (07/19/2022 3:28 PM VESSEL ORDINARY SEAMAN): Blood sugars have been running a little high at home, 240 this morning or thereabouts. She takes Lantus 10-15 units in the morning depending on blood sugar level. She is also on Jardiance. We will see her back in 10 days. Assessment & Plan (07/04/2022 4:03 PM VESSEL ORDINARY SEAMAN): Decent glycemic control despite reduced insulin doses while inpatient. Empagliflozin started given coexisting HFrEF (see above); will continue at discharge (may have to decrease or stop insulin with administration). Assessment & Plan (07/03/2022 3:10 PM VESSEL ORDINARY SEAMAN): Decent glycemic control despite reduced insulin doses while inpatient. Empagliflozin started given coexisting HFrEF (see above). Assessment & Plan (06/03/2022 2:37 PM CDT): Blood sugars fluctuate from as low as 84 to over 200. She says it does not seem to correlate with what she eats. She does not really understand why. When her fasting blood sugar is over 140-150, she will take an extra dose of Lantus, typically 15 units. We changed her medication list to reflect how she is taking her Lantus which is somewhat idiosyncratic but acceptable. HbA1c was a little bit higher than before. We will see her back in six months with labs. We reminded her that her diabetic eye exam is due. Lab Results Component Value Date HGBA1C 7.8 (H) 05/14/2022 HGBA1C 6.7 (H) 08/09/2021 HGBA1C 7.1 (H) 02/10/2021 Lab Results Component Value Date MICROALBUR <12.0 10/21/2018 LDLCALC 68 11/08/2021 CREATININE 1.52 (H) 05/14/2022 Assessment & Plan (11/13/2021 12:00 PM CDT): Blood sugars in the morning are usually around 130 mg/dL. HbA1c is in a pretty good range. She complains of frequent loose stools and bloating which could be a side effect of metformin. With her elevated creatinine, we will stop the metformin. We will keep her on the long-acting insulin. The dose may need to be adjusted, so I asked her to call me with blood sugar readings if they are getting into the upper 100s. Lab Results Component Value Date HGBA1C 6.7 (H) 08/09/2021 HGBA1C 7.1 (H) 02/10/2021 HGBA1C 7.0 (H) 11/03/2020 Lab Results Component Value Date MICROALBUR <12.0 10/21/2018 LDLCALC 68 11/08/2021 CREATININE 1.56 (H) 11/08/2021 Assessment & Plan (08/14/2021 11:13 AM VESSEL ORDINARY SEAMAN): She is on long-acting insulin and metformin. She says blood sugars fluctuate widely at home, but HbA1c is in a good range. The fluctuations probably reflect her diet which she says is b ad. We encouraged better attention to her diet. We will see her back in three months. Lab Results Component Value Date HGBA1C 6.7 (H) 08/09/2021 Assessment & Plan (05/19/2021 11:35 AM CDT): Her glucose monitor stopped working. We are getting her a replacement. Her last HbA1c is in a good range. We will check again before her next visit in about three months. Lab Results Component Value Date HGBA1C 7.1 (H) 02/10/2021 Assessment & Plan (02/16/2021 1:06 PM CDT): She says blood sugars vary from about 135-175 mg%. This is adequate control for the time being. Her last HbA1c is in a reasonable range. Follow-up in three months, or sooner if needed. Lab Results Component Value Date HGBA1C 7.1 (H) 02/10/2021 Assessment & Plan (01/16/2021 10:42 AM CDT): Blood sugars are 150-179 mg % on her home monitor. Last hemoglobin A1c was 7.0%. We adjusted the insulin glargine dose to reflect what she has been taking which is 12 units nightly. She is also taking metformin 500 mg twice a day. Control is adequate for the time being. We will see what her follow-up HbA1c value is when she returns in about one month. Assessment & Plan (12/19/2020 2:20 PM CDT): She was not eating well, so according to my notes, she stopped taking her insulin. She says that I told her to stop. Blood sugars were running over 200, so she resumed taking some insulin glargine 10 units at bedtime. Fasting blood sugar this morning was 175. We will have her continue this dose. Insulin was originally prescribed by Dr. Ritter, and we may want to refer her back to endocrinology for tighter control, but for the moment we will see her back in one month. Between now and then, she should try to get her eye exam done. Assessment & Plan (12/25/2020 11:42 AM CDT): Blood sugars have been running from about 170 to 220 mg/dl in the morning. She is on a relatively low dose of metformin. She was supposed to resume insulin, but for some reason did not. We explored this a bit. She is not eating regular meals, sometimes only once a day. She denies feeling nauseated. She just does not feel like eating. Nothing is attractive to her. In view of her poor appetite, we will suspend insulin treatment for now. Continue metformin. She had a an appointment with Dr. Ritter about a week ago but did not keep it because she did not feel like going. We will work on improving her mood which hopefully will result in improved compliance. Assessment & Plan (11/24/2020 3:32 PM CDT): Patient has known DM and has been on lantus and metformin. She recently held her lantus as blood glucose has been running in the low 100s. She reports now fasting blood sugars are greater than 200. We will have her resume her insulin. She will return for follow up next week for recheck. Will adjust medications based on home blood glucose readings. Assessment & Plan (11/21/2020 3:58 PM CDT): She says blood sugars in the morning are generally around 110-120 mg%. When she was in the [facility] following a large pulmonary embolism, they were even lower. We will have her stop the evening insulin for a night or two and call with morning blood sugars to see if she still needs the insulin. Continue metformin. Assessment & Plan (11/07/2020 9:00 AM CDT): - Accu checks - SSI Assessment & Plan (11/01/2020 11:24 AM CDT): She has had diabetes for at least 20 years. It seems to be pretty well controlled. Last hemoglobin A1c was in a good range on a low-dose of metformin and a low- dose of long-acting insulin. She has been seeing Dr. Ritter but can probably follow-up here. She would like to see fewer doctors if possible. Return in three months. Lab Results Component Value Date HGBA1C 6.4 08/23/2020 Assessment & Plan (08/23/2020 12:23 PM VESSEL ORDINARY SEAMAN): Diagnosed more than 25 years ago Started on insulin in March 2019 Control : in good control A1c 6.4% on 08/23/20. A1c 5.9% on 05/17/2020 A1c 6.7% on 02/09/20. A1c 6.1% on 10/21/2019. A1c 6.3% on 07/20/19. A1c 9.3% on 04/06/19. A1c was 6.6% on 10/21/18. Kidney: normal kidney functions in August/2020. Plan: Patient to continue diet plan. Decrease lantus to 8 units Qhs, if am sugars stay below 90. Continue Metformin to 500 mg bid Monitor sugars 2-3 x per day- bring records. Hypoglycemia symptoms and treatment reviewed with patient. Call if having low sugars. Ophthalmology exam on regular basis. Assessment & Plan (06/07/2020 1:00 PM CDT): Managed by endocrinology. Assessment & Plan (05/17/2020 11:04 AM CDT): Diagnosed more than 25 years ago Started on insulin in March 2019 Control : in tight control due to decrease appetite. No severe or recurrent hypoglycemia A1c 5.9% on 05/17/2020 A1c 6.7% on 02/09/20. A1c 6.1% on 10/21/2019. A1c 6.3% on 07/20/19. A1c 9.3% on 04/06/19. A1c was 6.6% on 10/21/18. Kidney: normal creatinine 0.96 on 07/22/19 Plan: Patient asked to eat 2-3 meals /day. I recommended a bedtime snack to prevent hypoglycemia Decrease lantus 10 units Qhs. Continue Metformin to 500 mg bid Monitor sugars 2-3 x per day- bring records. Hypoglycemia symptoms and treatment reviewed with patient. Call if having low sugars. Ophthalmology exam on regular basis. Assessment & Plan (02/09/2020 11:10 AM CDT): Diagnosed more than 25 years ago Started on insulin in March 2019 Control : in good control, no hypoglycemia A1c 6.7% on 02/09/20. A1c 6.1% on 10/21/2019. A1c 6.3% on 07/20/19. A1c 9.3% on 04/06/19. A1c was 6.6% on 10/21/18. Kidney: normal creatinine 0.96 on 07/22/19 Plan: Patient asked to eat 2-3 meals /day. I recommended a bedtime snack to prevent hypoglycemia Continue lantus 12 units Qhs. Continue Metformin to 500 mg bid Monitor sugars 2-3 x per day- bring records. Hypoglycemia symptoms and treatment reviewed with patient. Call if having low sugars. Ophthalmology exam on regular basis. Assessment & Plan (02/08/2020 9:08 AM CDT): Managed by endocrinology. Obstructive sleep apnea syndrome 02/09/1990 Overview (10/08/2021): Was on CPAP for years, but stopped [...] at [address] Lorenzana. Assessment & Plan (07/19/2022 3:29 PM VESSEL ORDINARY SEAMAN): She got out of the hospital about two weeks ago and stopped using her CPAP, just resuming it a day or two ago. This could be why she feels so tired. We encouraged her to resume it on a regular basis. Assessment & Plan (07/04/2022 4:02 PM VESSEL ORDINARY SEAMAN): Not currently on CPAP. To follow with Sleep as outpatient. Assessment & Plan (07/03/2022 3:11 PM VESSEL ORDINARY SEAMAN): Not currently on CPAP. To follow with Sleep as outpatient. Assessment & Plan (11/13/2021 12:05 PM CDT): She finally decided to go on CPAP and saw Dr. Lorenzana. All the equipment was ordered but has not been delivered yet. Hopefully this will help her sleep better. Assessment & Plan (02/16/2021 1:09 PM CDT): She says she was diagnosed with sleep apnea 30 years ago. She used CPAP for few years, but then the equipment broke and she says her provider would not fill out the paperwork for a replacement. It is a little unclear exactly how long she has been off of the CPAP. Untreated sleep apnea could contribute to her severe pulmonary hypertension. There could be other effects, even on her mood and presence of headaches. However, she does not want to pursue a referral to Sleep Medicine at this time. We will revisit this issue periodically. Resolved Problems Problem Noted Date Diagnosed Date Resolved Date Hospital discharge follow-up 12/28/2024 01/07/2025 Orthostatic hypotension 12/17/2024 05/2 04/2025 Abdominal wall mass 12/01/2024 12/29/19 25 Open wound of abdomen 12/01/20242024 Yeast vaginitis 09/17/2023 12/01/2024 Overview (09/17/2023): Post UTI treatment. Ear lesion 09/12/2023 12/01/2024 Overview (12/02/2023): Seen by Dr. Gonzalez, referred to ENT but the patient reports on 12/02/2023 that she never went because the lesion resolved on its own. Assessment & Plan (09/12/2023 11:06 AM VESSEL ORDINARY SEAMAN): The lesion of the ear is concerning for a carcinoma. I am going to make a referral to ENT to address this. Skin lesion of chest wall 08/28/2023 Overview (08/28/2023): Left of center upper sternum, biopsied in remote past, recurrent, picks at it. About 0.5 cm diameter with hyperkeratotic surface and mild surrounding erythema. Assessment & Plan (09/12/2023 11:06 AM VESSEL ORDINARY SEAMAN): The patient wants to think about whether or not she wants to have the chest wall lesion removed. The back when I favor just to be an actinic keratosis. We have given the patient options of doing this in the office or in the OR with some sedation. We have discussed the need for her to hold her anticoagulation preparation. She would prefer not to have anything done but we have discussed potential of what the lesions could be. When she makes her decision she will call us back. Assessment & Plan (08/28/2023 10:20 AM VESSEL ORDINARY SEAMAN): She has an approximately 0.5 cm hyperkeratotic papule of the upper chest just left of center over the upper sternum. She says something was removed there in the remote past but details are lacking. It recurred recently. She tends to pick at it. There is some mild surrounding erythema. It looks like it could be an irritated scar or possibly a squamous cell cancer. We will refer her to surgery for further evaluation and possibly a shave biopsy. Acute cystitis with hematuria 07/31/2023 12/01/2024 Assessment & Plan (09/14/2023 12:27 PM VESSEL ORDINARY SEAMAN): She was seen in Nephrology July 31 and treated for UTI with Augmentin. The organism was resistant to ampicillin. She is still having symptoms. There was minimal associated microscopic hematuria. We will put her on cefdinar for seven days, and hopefully this will help. If not she was instructed to call the office for early follow-up. Intertrigo 05/12/2023 12/01/2024 Assessment & Plan (06/04/2023 10:27 AM CDT): She noticed a rash under her left breast about six days ago. It is somewhat painful. Exam shows probable fungal intertrigo which is moderate to severe. There is superficial erosion of the skin in a focal area in the center of the rash. There is no evidence of drainage or spreading cellulitis. We prescribed some ketoconazole cream to be mixed with triamcinolone cream and applied twice daily. We will check with her next week to see how things are going. Flank pain 01/22/2023 12/01/2024 Assessment & Plan (02/04/2023 6:50 PM CDT): Four days ago she developed right flank pain that comes and goes, and is worse with certain twisting movements. The pain radiates from upper lumbar area around to the front of her abdomen. She has been constipated which is new, and is taking something every 3-4 days to move her bowels. She denies dysuria and hematuria, but does have chronic stress/mixed incontinence. She denies any recent falls or other injuries, heavy lifting or other trauma. Exam is negative for any neurological findings of significance. Abdominal exam is benign. We will check imaging of the thoracic and lumbar spine where she has a history of interventions. We will check a urinalysis. We will have her evaluated and treated in physical therapy and also have her follow-up with pain management. Return here in two weeks. Unsteady gait 08/12/2022 12/01/2024 Assessment & Plan (08/28/2023 10:22 AM VESSEL ORDINARY SEAMAN): She is deconditioned. She has a mild fine diffuse tremor which is probably due to her generalized weakness. We previously referred her to physical therapy but she did not experience any improvement. We will monitor clinically. Assessment & Plan (02/23/2023 11:29 AM CDT): She wanted to discuss her unsteady feeling when walking. It is not really a dizziness. She was evaluated for vertigo in physical therapy and apparently the provocative tests were negative. The therapists told her they could not help her for this condition. I think they could help her with other issues as described elsewhere including deconditioning, peripheral neuropathy, use of a cane or walker, and gait training. Systolic CHF, acute 07/03/2022 07/29/20 Overview (07/19/2022): Possibly tachycardia-mediated per cardiology. Left heart cath 04/30/2022 unremarkable. Patent LAD stent, normal coronaries elsewhere. Assessment & Plan (07/19/2022 3:27 PM VESSEL ORDINARY SEAMAN): She had mild CHF by echo, possibly tachycardia mediated. Heart rate is now controlled and there is no swelling in her legs. She will continue medical therapy. Assessment & Plan (07/04/2022 4:04 PM VESSEL ORDINARY SEAMAN): Possibly tachycardia-mediated, as relatively unremarkable recent [facility]. Continue current afterload reduction/beta blockade; consider switch to Entresto if cost not prohibitive. Appears to be diuresing, so will continue current furosemide dose despite notation of volume overload. Assessment & Plan (07/03/2022 3:06 PM VESSEL ORDINARY SEAMAN): Possibly tachycardia-mediated, as relatively unremarkable recent [facility]. Continue current afterload reduction/beta blockade; consider switch to Entresto if cost not prohibitive. Appears to be diuresing, so will continue current furosemide dose despite notation of volume overload. QT prolongation 06/27/2022 12/28/2024 Overview (07/29/2022): Due to amiodarone per cardiology. Assessment & Plan (07/04/2022 4:04 PM VESSEL ORDINARY SEAMAN): Attributable at least in part to amiodarone administration (though note QTc 499 on admission EKG). Electrolytes unremarkable. Assessment & Plan (07/03/2022 3:03 PM VESSEL ORDINARY SEAMAN): Attributable at least in part to amiodarone administration (though note QTc 499 on admission EKG). Continue telemetry. Trigger thumb of right hand 05/25/2022 12/01/2024 Overview (05/25/2022): Added automatically from request for surgery [id number] Abnormal nuclear stress test 04/19/2022 05/16/2022 Overview (05/16/2022): Stress test on 04/09/2022: Interpretation limited by artifact. 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 Left ventricle: Normal size and systolic function (visually confirmed EF >50%). Added automatically from request for surgery [id number], cardiac catheterization on 04/30/2022, patent LAD stent, no significant narrowing anywhere. Chest pain 04/19/2022 05/16/2022 Overview (05/16/2022): Added automatically from request for surgery [id number], cardiac catheterization on 04/30/2022, patent LAD stent, otherwise normal coronaries. Class 2 severe obesity due t o excess calories with serious comorbidity and body mass index (BMI) of 35.0 to 35.9 in adult 11/12/2021 Overview (11/12/2021): Lost some weight. Trigger ring finger of right hand 05/19/2021 12/01/2024 Synovial cyst of right popliteal space 04/21/2021 12/01/2024 Overview (11/12/2021): Behind R knee, clinically a hematoma, see office visit, SALUD Hedrick. Ultrasound showed a Dominguez's cyst. Assessment & Plan (06/10/2021 2:21 PM CDT): She saw SALUD Hedrick about a month ago for a swelling behind her right knee. An ultrasound showed that this is probably a small Dominguez's cyst. We will monitor clinically. Assessment & Plan (04/21/2021 4:39 PM CDT): Most likely this is a hematoma given that she is on 2 anticoagulants and there is a bruise over the area. We will get a venous doppler just to be sure to R/O DVT. Addendum: initial reports shows no DVT-- and patient is aware of this per her visit here. We will call her with official results when radiologist completes the reading. Chest pain 03/13/2021 05/13/2021 Overview (05/13/2021): Added automatically from request for surgery [id number], cardiac cath 03/17/2021, Dr. Zarate, severe LAD stenosis, stented. Oral pain 11/30/2020 12/01/2024 Assessment & Plan (12/25/2020 11:44 AM CDT): She stopped using the Magic mouthwash. Apparently it was previously prescribed by her former PCP, Dr. Pond. She says it was not effective at treating her symptoms. Previous exams have not showed any definite abnormality of the oropharynx to explain the mouth pain. We will monitor clinically. Assessment & Plan (11/30/2020 3:59 PM CDT): Patient is reporting a sore across her tongue, however, on exam none noted. She reports associated pain with eating. We will begin a magic mouthwash for discomfort and re-evaluate and next visit or sooner if needed. Acute bilateral thoracic back pain 11/24/2020 05/13/2021 Overview (05/13/2021): Acute on chronic pain, see office and ER notes. Assessment & Plan (11/24/2020 3:30 PM CDT): Patient presents with reports of acute mid back pain that has been ongoing since this weekend. She was seen in the ER and diagnosed with UTI. She started antibiotic therapy and has had no change in pain. She had CT in the ER of the abdomen/pelvis that showed no acute findings. Pain appears more musculoskeletal in nature. Patient has a known history of chronic pain and follows with a transportation equipment painter. We will do xray of the thoracic spine to r/o any new fractures. Patient has not tried any OTC therapies for pain. Discussed with Dr. Malagon who recommends trying some hydrocodone, until evaluation by pain managment. Discussed that it can cause nausea and sedation, patient voiced understanding. We discussed that if she does not want to take she can try tylenol. She will continue with home PT/OT. Will have her return for follow up in one week or sooner if needed. Other headache syndrome 11/23/202011/11 Overview (11/12/2021): Started after she had embolectomy for pulmonary embolism. MRI on 11/02/2020: Mild burden of scattered white matter disease, which is nonspecific but can be seen with chronic small vessel ischemia. No definite MR abnormality to explain patient's reported headaches. Assessment & Plan (10/17/2024 4:51 PM VESSEL ORDINARY SEAMAN): Chronic, present for 4-5 or more years, she would like to get off amitriptyline to reduce her pill burden, so we will lower the dose from 50 mg nightly to 25 mg nightly, if still doing okay after a month she can discontinue the medication. Assessment & Plan (11/13/2021 12:04 PM CDT): Her headaches are t errible. Her neurologist switched her from topiramate to amitriptyline. So far she has not noticed any difference. MRI of the brain recently was unremarkable. Assessment & Plan (08/14/2021 11:15 AM VESSEL ORDINARY SEAMAN): She continues to have problems with headaches which started after an embolectomy for massive pulmonary embolism. She was started on Topamax by her teradata developer, but it has not helped. She is scheduled for a CT scan and evaluation by a neurologist at [facility]. Assessment & Plan (02/28/2021 2:08 PM CDT): She started having headaches after embolectomy for pulmonary embolism. She describes these as more or less constant, bilateral, and 8/10 in severity. She uses Tylenol p.m. and Tylenol arthritis for the headaches. We also gave her a trial of hydrocodone which she thinks helped a little bit, but the response was not dramatic. We checked a CT of the head which was negative for any acute pathology. I recommended evaluation by pain management for this as well as chronic back pain. She says that her appointments keep getting canceled while they review her records. She does not want to pursue any additional treatment or intervention at this time. We will see her back in three months. Assessment & Plan (12/27/2020 3:08 PM CDT): She has been having t errible headaches. They are more or less constant but have sharp exacerbations with certain movements of the head. They are localized to the right posterior neck area radiating into the right occipital and temporal scalp. 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 We did a CT head about 10 days ago because she is on blood thinners, but there was no evidence of any subdural hematoma. There was some atrophy consistent with her age. She has some hydrocodone for use as needed for her various pains which she takes occasionally. She says it does not really helped the headache. We are hoping that the higher dose of Cymbalta will help. Her pain management physician, Dr. Huff, has never given her a steroid injection in the neck. This may be an option if medical therapy fails. Assessment & Plan (12/25/2020 11:44 AM CDT): She has had a moderate global headache for the past two weeks or so. It does not seem to be getting worse, but it definitely interferes with quality of life. It may be part of her global chronic pain issue. On this video telemedicine visit, her speech was relatively fluent although sparse which I interpret as a symptom of her depression. There were no definite focal deficits observed. She does have a moderate essential tremor in her hands which is evident when they are outstretched. She has not had recent imaging of the brain. She is on blood thinners for a recent large pulmonary embolism. We will arrange for a CT head to rule out subdural or other complication. Additional workup may be needed. Dysphagia 11/06/2020 11/20/2020 Overview (11/20/2020): During hospitalization, in ICU, dysphagia 2 diet recommended. Assessment & Plan (11/06/2020 4:23 PM CDT): - difficulty swallowing in the ICU - speech evaluated and recommended dysphagia 2 diet Shortness of breath 11/02/2020 12/02/19 25 Overview (07/29/2022): Due to saddle pulmonary embolism, and residual effects, also obesity, CAD, pulmonary hypertension, deconditioning. Assessment & Plan (01/13/2021 2:38 PM CDT): She had a massive pulmonary embolism several months ago. She still gets short of breath. A follow-up echocardiogram is planned but not scheduled yet. We will have the front office medical assistant check on the scheduling. We evaluated her shortness of breath and complaints of chest pains in the office setting, and results were negative for any acute cardiac problems. We requested a stress test. This shows a small reversible defect. She says she has chest pain a ll the time. It is unrelated to exertion. It seems to be worse at night. She has trouble characterizing the pain. In view of the positive stress test, we will have her follow-up with Cardiology to determine if a heart catheterization is appropriate. In the meantime, she is on a blood thinner for the pulmonary embolism, and she also takes a beta-[place]. Assessment & Plan (12/28/2020 4:45 PM CDT): Patient is reporting increasing feelings of shortness of breath and feeling as though she cannot take a deep breath in. She does have a known history of PE and remains on Eliquis for AC. At visit today lung sounds clear and oxygen saturation normal at 97%. There is concern that this may be anxiety related as she expresses feeling increasingly anxious and she has an elevated PHQ-9 of 11. However, given her other comorbid conditions further evaluation will be completed. Her EKG showed NSR with some T-wave inversion V1, V2 this has been seen on previous EKG's, but not noted on her most recent EKG. She had echo in October that showed nml EF with global LV dysfunction, given this have recommended lexiscan stress testing. We will also do labs to evaluate for any anemia, electrolyte disturbance of volume overload. She will follow up post stress testing or sooner if needed. Assessment & Plan (11/02/2020 2:25 PM CDT): Pt is very SOB today with any exertion. She was at 88% with ambulation, but when sitting she did come up to 95%. Just getting up on to the exam table she was very SOB. She states that she is having chest pain today as well as abdominal pain. She c/o fatigue over the last week and states that she does not feel like eating. She denies fever, but admits to a cough more recently. Her hand tremors are very obvious bilaterally. She is very weak--she cannot walk unassisted today. We have called EMS today and they will be taking her to [facility] ED. History of pulmonary embolism 11/02/2020 12/01/2024 Overview (12/19/2020): High risk of recurrence. Assessment & Plan (06/06/2024 3:59 PM CDT): Chronic, diagnosed about 3-4 years ago, currently on apixaban to prevent recurrence due to high risk. She also has paroxysmal atrial fibrillation. She bruises easily, otherwise appears to be tolerating the medicine well. Follow-up in three months. Assessment & Plan (08/28/2023 10:17 AM VESSEL ORDINARY SEAMAN): She is at high risk for recurrence of PE, so she remains on Eliquis. Assessment & Plan (07/04/2022 4:03 PM VESSEL ORDINARY SEAMAN): On chronic apixaban (will also address AF; see above). Assessment & Plan (07/03/2022 3:09 PM VESSEL ORDINARY SEAMAN): On chronic apixaban (will also address AF; see above). Assessment & Plan (06/03/2022 2:35 PM CDT): She is at high-risk of recurrence so she is on Eliquis for this as well as atrial fibrillation. Assessment & Plan (12/09/2021 3:59 PM CDT): She is on Eliquis for a high risk of pulmonary embolism recurrence. She also has atrial fibrillation. She denies blood in the stool or urine. Assessment & Plan (01/13/2021 2:41 PM CDT): She remains on Eliquis for a high risk of recurrent pulmonary embolism. A follow-up echocardiogram is planned to assess right heart function. This was ordered by her packaging specialist at [facility]. It was scheduled to be done at [facility], but she would like it done at [facility] so we are looking in to changing the venue. Assessment & Plan (12/19/2020 2:24 PM CDT): She is on Eliquis. She has a very high risk of recurrent thromboembolic disease, so most likely we will keep her on this medication indefinitely. Assessment & Plan (11/27/2020 11:23 AM CDT): She was in the hospital recently with a saddle embolism and acute cor pulmonale. She wonders if symptoms started a month ago or even more because she was starting to experience some shortness of breath back then. She then visited with a friend who said she just did not look right. She thought about it overnight and called our office the next morning. We sent her to the emergency room. She was diagnosed with a very large pulmonary embolism. She was transferred to a tertiary care. She is doing better now and is on Eliquis. Continue same and follow-up in three months, or sooner if needed. Assessment & Plan (11/08/2020 8:11 AM CDT): - went to the OR on 11/03 for suction thrombectomy, unable to remove significant amount of clot - heparin gtt -> therapeutic lovenox 11/07 - NOAC mkceon check complted and all $400- $500 will touch base with case management today - Wean O2 as tolerated - Pulmonary hygeine - Monitor cardiac function - Medicine consulted: no further recommendations, patient medically stable for discharge. Recommending eliquis for anticoagulation. Pulmonary embolus 11/02/2020 11/12/2021 Overview (11/12/2021): See records from [facility]. Long-term current use of opiate analgesic 04/11/2020 10/24/2020 Overview (10/24/2020): No longer taking opiates as of early 2020. Physical deconditioning 02/24/202011/11 Overview (11/20/2020): Due to pain. Assessment & Plan (02/06/2023 12:08 PM CDT): There is no lateralizing weakness noted on a screening neurological exam today, but she is probably deconditioned. We recommended some therapy to work on this which could help her balance and reduce the risk of falls. Assessment & Plan (12/19/2020 2:20 PM CDT): I encouraged her to stay active. She was able to drive herself to the office today for the appointment. Sciatica of right side 10/13/201912/01 Assessment & Plan (10/13/2019 3:15 PM VESSEL ORDINARY SEAMAN): The radicular nature of the pain in the right leg he may be secondary to lumbar issues and she is scheduled to see a inventory specialist manager tomorrow which may be helpful in evaluating the leg. Pain management may also be able to assist this patient with her radicular pains Trochanteric bursitis of right hip 09/02/2019 10/22/2020 Overview (10/22/2020): Saw Dr. Shepard. Weight loss recommended. Assessment & Plan (10/13/2019 3:13 PM VESSEL ORDINARY SEAMAN): Patient does have trochanteric bursitis of the right hip. Having had a total hip I would recommend not receiving cortisone injections as this could be a local immune suppressant and could increase the risks of infection. Long-term weight loss would likely be helpful. She may find topical rubs beneficial. 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 Assessment & Plan (06/07/2020 1:00 PM CDT): Stable. Cont. Current meds. Assessment & Plan (04/06/2019 8:53 PM CDT): LUE >> RUE. Reported tremor present for > 1 year. Referred to neurology for further eval/mgmt. Oral thrush 04/06/2019 09/24/2019 Current use of steroid medication 04/06/2019 09/24/2019 Assessment & Plan (04/06/2019 8:57 PM CDT): H/O steroid injections. Most likely contributing to patient's elevated blood sugars. Diverticulosis 02/25/2019 10/22/2020 Spider veins of both lower extremities 02/25/2019 11/20/2020 Overview (11/20/2020): Chronic stasis. Assessment & Plan (02/26/2019 6:12 PM CDT): Recommended compression socks, elevated feet when possible. DDD (degenerative disc disease), lumbar 01/15/2019 10/22/2020 Overview (10/22/2020): Duplicate entry. H/O vertebroplasty 01/08/2019 Overview (10/22/2020): Sees Dr. Shepard. Pain of both hip joints 01/08/201912/10 Assessment & Plan (01/12/2019 7:53 AM CDT): S/P hip replacement, patient would like to see a different Ortho physician. Referral generated. H/O compression fracture of spine 06/09/2018 10/22/2020 Overview (10/22/2020): Details lacking, sees Dr. Shepard. Iron deficiency anemia wes khan to inadequate dietary iron intake 06/09/2018 0 Assessment & Plan (02/26/2019 6:10 PM CDT): Cont supplements. Ferrous sulfate 325 mg qd Assessment & Plan (06/09/2018 5:45 PM CDT): Asx. Rx refill given, will follow. Compression deformity of vertebra 02/04/2018 06/09/2018 Liver cyst 01/16/2018 12/28/2024 Overview (10/22/2020): CT at [facility]: Hepatic steatosis. 1 cm low-density lesion within the right lobe of the liver, slightly increased in size when compared to prior imaging from 2014. This could be further evaluated with nonemergent MR of the abdomen utilizing a liver mass protocol. (MRI ordered but results not in [facility]). Assessment & Plan (11/01/2020 11:25 AM CDT): She had a <1 cm liver cyst originally diagnosed in 2014 at [facility] and confirmed and slightly larger at 1 cm on a follow-up CT in 2018. Sounds like a benign condition. MRI was ordered but I do not see any results. We will consider additional workup as needed. Vertebral compression fracture 12/26/2017 02/25/2019 Urge incontinence of urine 12/09/2017 0 12/28/2024 Overview (11/22/2020): OAB. Referred to urology per office notes. Assessment & Plan (02/16/2021 1:05 PM CDT): She was previously on oxybutynin XL, and would like to go back on it due to problems with mixed incontinence. She definitely has urge incontinence and also sometimes urinates without realizing it. We sent in a refill. Assessment & Plan (12/07/2020 5:19 PM CDT): The Myrbetriq was too expensive so she never picked it up. When she is in the office next, I told her we could probably give her a trial from samples. Assessment & Plan (11/30/2020 3:57 PM CDT): At last visit with Dr. Malagon her ditropan was stopped as it was not helping for her OAB. She will be sent 14 day trial of Myrbetriq to see if this is helpful or not. If so and affordable can refill. Assessment & Plan (11/21/2020 3:57 PM CDT): She has an overactive bladder. She was previously on Ditropan which initially helped, but is no longer helping. We will have her stop it and see how things go. Consider alternative therapy. 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 Pond. Assessment & Plan (06/07/2020 12:58 PM CDT): Clinically improved, continue current meds. Assessment & Plan (09/27/2019 9:36 PM VESSEL ORDINARY SEAMAN): Stable. Cont. Current meds. Assessment & Plan (02/26/2019 6:09 PM CDT): Encouraged counseling, patient declined. Cont citalopram 40 mg qd. Assessment & Plan (06/09/2018 5:43 PM CDT): Psychological condition is improving with treatment. Continue current treatment regimen. Regular aerobic exercise. Psychological condition will be reassessed at the next regular appointment. Postoperative back pain 12/09/201709/12 Acute midline low back pain without sciatica 06/09/2018 Bilateral thigh pain 021 Overview (10/22/2020): Details lacking. Encounters Date Type Department Care Team Description 03/12/2025 12:30 PM CDT Ancillary Procedure [place] [facility] [facility] [address] [place] [address] [address] [place] [address] Paroxysmal atrial fibrillation (HCC); Implantable loop recorder present; Dizziness 02/19/2025 2:30 PM CDT Office Visit [facility] [place] [facility] [address] [place] [phone] Madelin Truong NP Benign paroxysmal positional vertigo due to bilateral vestibular disorder (Primary Dx); Cerebral microvascular disease; Paroxysmal atrial fibrillation (HCC); Chronic heart failure with preserved ejection fraction (HCC); Type 2 diabetes mellitus with hyperglycemia, with long-term current use of insulin (HCC) 02/09/2025 Telephone [facility] General Neurology [address] [facility] 6th [place] [address] [place] [address] Winifred Ortiz RN 02/09/2025 Telephone [facility] General Neurology [address] [facility] 6th [address] [place] [address] Wang Dawson Jr., MD 02/07/2025 7:25 AM CDT - 02/07/2025 11:59 PM CDT Hospital Encounter [facility] [address] [place] [address] Wang Dawson Jr., MD New onset of headaches Discharge Disposition: Discharge to home or self care 02/05/2025 4:30 PM CDT Ancillary Procedure [place] [facility] [facility] [facility] [address] [place] [address] [address] [place] [phone] Paroxysmal atrial fibrillation (HCC); Implantable loop recorder present; 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) 02/05/2025 2:00 PM CDT Office Visit [facility] [place] [facility] [address] [place] [address] Madelin Truong NP Dizziness (Primary Dx); Paroxysmal atrial fibrillation (HCC); Persistent mood disorder; Type 2 diabetes mellitus with hyperglycemia, with long-term current use of insulin (HCC) 02/05/2025 Orders Only [facility] Neurology [address] [facility] 6th Floor [address] [place] [address] Wang Dawson Jr., MD 02/04/2025 Telephone [facility] Neurology [address] [facility] 6th [place] [address] [place] [address] Winifred Ortiz RN [employer] Contact Number 02/02/2025 Orders Only [place] [facility] [address] [facility] [address] [place] [address] Donita Dye Paroxysmal atrial fibrillation (HCC) (Primary Dx); Implantable loop recorder present; Dizziness 02/01/2025 2:30 PM CDT Ancillary Procedure [place] [facility] at [address] [place] [phone] Encounter for interrogation of cardiac recorder (Primary Dx); Paroxysmal atrial fibrillation (HCC); Implantable loop recorder present 02/01/2025 2:30 PM CDT Office Visit [place] [facility] at [address] [place] [phone] Laura Menjivar NP Paroxysmal atrial fibrillation (HCC) (Primary Dx); Implantable loop recorder present; Pulmonary hypertension (CMS/HCC) (HCC); Hyperlipidemia associated with type 2 diabetes mellitus (HCC); Hypertension associated with diabetes (HCC) 01/08/2025 Telephone [place] [facility] at [address] [place] [phone] Ervin Zarate MA 01/05/2025 2:30 PM CDT Office Visit [facility] [address] [place] [address] Madelin Truong NP Dizziness (Primary Dx); Paroxysmal atrial fibrillation (HCC); Implantable loop recorder present 01/01/2025 11:55 AM CDT Lab [facility] [address] [place] [address] Abdominal wall mass 01/01/2025 8:15 AM CDT Ancillary Procedure [place] [facility] [address] [facility] [address] [place] [address] Paroxysmal atrial fibrillation (HCC); Implantable loop recorder present; 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) 12/31/2024 MARYAM IP Outreach [facility] Accountable Care Organization [address] [place] [address] Marion Nayak LPN 12/30/2024 Telephone [facility] Pulmonary [address] [facility] 8th [place] [address] [place] [address] Jeanne Camacho RN 12/30/2024 Telephone [facility] Pulmonary [address] [facility] 8th [place] [address] [place] [address] Jeanne Camacho, HECTOR 12/28/2024 7:15 PM CDT Lab [facility] ([facility] [address] [place] [address] Sensory polyneuropathy; New onset of headaches; Orthostatic hypotension 12/28/2024 3:30 PM CDT Office Visit [facility] General Neurology [address] [facility] 6th [place] [address] [place] [address] Wang Dawson Jr., MD Sensory polyneuropathy (Primary Dx); Dizziness; Gait disturbance; New onset of headaches; Hereditary motor and sensory neuropathy 12/28/2024 1:00 PM CDT Office Visit [facility] Medical Group Orthopedics and Sports Medicine [address] [facility] [address] [place] [address] Iliana Leonard PA Rotator cuff arthropathy of right shoulder (Primary Dx); Osteoarthritis of right glenohumeral joint 12/25/2024 2:30 PM CDT Office Visit [facility] [facility] [address] [place] [address] Madelin Truong NP Hospital discharge follow-up (Primary Dx); Orthostatic hypotension; Dizziness; Pulmonary hypertension (CMS/HCC) (HCC); Paroxysmal atrial fibrillation (HCC) from Last 3 Months Immunizations Immunization Administration Dates Next Due Influenza, Quadrivalent, Hig h Dose, Preservative Free, Intrr 06/29/2022,06/07/2020 Influenza, Quadrivalent, Spl it, Preservative Free, Intramuscular 08/14/2021,07/26/2017 Influenza, Trivalent, High D ose, Split, Preservative Free, Intramuscular 05/01/2019,06/07/2016,07/26/2015 Influenza, Trivalent, IM (MDV) 07/27/2015,2013 Influenza, Unspecified 10/16/2024(Deferr ed: Patient Refused),06/03/2023(Deferred: Patient Refused),05/16/2018 Pfizer SARS-CoV-2 Monovalent Vaccination (12+ Yrs) PURPLE 05/01/2021 Pneumococcal Conjugate PCV 13 08/17/2016 Pneumococcal Polysaccharide PPV23 12/17/2014 Td, adsorbed 04/12/2015 Tdap 12/17/2014 ZOSTER Recombinant 08/07/2019,05/01/2019 Surgical History Surgery Date Site/Laterality Comments HERNIA REPAIR EYE SURGERY Bilateral cataracts SPINE SURGERY lumbar SPINAL CORD STIMULATOR IMPLANT TUBAL LIGATION KNEE SURGERY Right X 3 JOINT REPLACEMENT Right ROTATOR CUFF REPAIR Right HIATAL HERNIA REPAIR 08/12/2012 - 08/11/2013 Dates and details lacking. Done at [facility] per patient. CARPAL TUNNEL RELEASE Bilateral CHOLECYSTECTOMY 08/12/1984 - 08/11/1985 Dates and details lacking. TOE SURGERY HIP SURGERY 1999 and 2010 BACK SURGERY 2014 and 2017 COLONOSCOPY 02/11/2019 Dr. Coombs, [facility]. ESOPHAGOGASTRODUODENOSCOPY 06/06/2018 Gastritis with erosions. Intact Khari. Dr. Coombs, [facility]. ABDOMINAL WALL SURGERY Tummy tuck, details lacking. KHARI FUNDOPLICATION Details lacking. KYPHOPLASTY 12/13/2017 T-11 KYPHOPLASTY 12/06/2017; 12/13/1711/2017: T12; 12/2017: T11 THROMBECTOMY 11/03/2020 Suction thrombectomy, pulmonary arteries, Ezekiel Torres. MAMMOGRAPHY 02/10/2021 Bilateral Negative, AMS. CARDIAC CATHETERIZATION 03/17/2021 Left A very tortuous LAD with 90% calcified mid stenosis was given a drug-eluting stent with good result, ULYSSES Nix. DIABETES EYE EXAM 04/25/2021 Bilateral No diabetic retinopathy, other findings present, Dr. Jeanne Laguerre, [facility]. CORONARY STENT PLACEMENT CARDIAC CATHETERIZATION 04/30/2022 Left Patent LAD stent, normal coronaries elsewhere. CARDIAC CATHETERIZATION 03/08/2022 Right Improved pulmonary hemodynamics, Ezekiel. TRIGGER FINGER RELEASE 06/05/2022 Right Trigger thumb release, Dr. Whipple DIABETES EYE EXAM 03/05/2023 Bilateral No diabetic retinopathy, other findings present. Jeanne Laguerre MD, [facility]. OTHER SURGICAL HISTORY 09/25/2023 Bilateral Right thumb and left long finger steroid injections for trigger finger. SUSAN Vasquez, orthopedics OTHER SURGICAL HISTORY 10/02/2023 N/A Loop recorder implanted, Dr. Irvin, [facility]. SHOULDER ARTHROCENTESIS 06/26/2024 Left subacromial bursal steroid injection, Iliana Leonard PA, orthopedics. OTHER SURGICAL HISTORY 06/26/2024 Right Right ring finger trigger finger injection, Iliana Leonard PA, orthopedics. SHOULDER ARTHROCENTESIS 09/28/2024 Right Glenohumeral steroid injection, Iliana Leonard, P.A., Orthopedics Medical History Medical History Date Comments Back pain, chronic Hypertension Sleep apnea Hyperlipidemia SOB (shortness of breath) GERD (gastroesophageal reflux disease) Urinary incontinence Type 2 diabetes mellitus Depression Anxiety DDD (degenerative disc disea se), lumbar 01/15/2019 Duplicate entry. 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 Pond. Bilateral thigh pain Details [place]. H/O compression fracture of spine 06/09/2018 Details lacking, sees Dr. Shepard. H/O vertebroplasty 01/08/[address] Yair saxena. Trochanteric bursitis of right hip 09/02/[address] Shepard. Weight loss recommended. Pulmonary hypertension (HCC) 11/07/2020 Due to saddle embolism. Spider veins of both lower extremities 9 Chronic stasis. SOB (shortness of breath) 11/02/2020 Due to saddle pulmonary embolism. Dysphagia 11/06/2020 During hospitali zation, in ICU, dysphagia 2 diet recommended. Acute saddle pulmonary embol ism without acute cor pulmonale (HCC) 11/02/2020 Added automatically from request for surgery [id number] Generalized anxiety disorder 06/09/2018 Acute bilateral thoracic back pain 11/24/2020 Acute on chronic pain, see office and ER notes. Soft tissue mass 04/21/2021 Behind R knee, clinically a hematoma, see office visit, SALUD Hedrick. Ultrasound showed a Dominguez's cyst. Pulmonary embolus (HCC) 11/02/2020 See vinod rds from [facility]. Coronary artery disease Systolic CHF, acute (HCC) 07/03/2022 Possib ly tachycardia-mediated per cardiology. Left heart cath 04/30/2022 unremarkable. Patent LAD stent, normal coronaries elsewhere. Atrial fibrillation with RVR (HCC) 06/27/2022 Hospitalized at [facility], controlled. Some tachycardia mediated heart failure symptoms. Obesity (BMI 30-39.9) 02/26/2019 Lost a lit tle weight, BMI down below 35. Diabetes (HCC) Family History Medical History Relation Name Comments Cancer Brother 1 Diabetes Brother 2 Heart attack Father Family history of myocardial infarction - (Added by TW Conv) Breast cancer Maternal Grandmother Diabetes Maternal Grandmother Family history of diabetes mellitus - (Added by TW Conv) Breast cancer Mother Family history of malignant neoplasm of breast - (Added by TW Conv) Cancer Mother Diabetes Mother Family history of diabetes mellitus - (Added by TW Conv)/Family history of diabetes mellitus - (Added by TW Conv) Heart attack Mother Family history of myocardial infarction - (Added by TW Conv) Stroke Mother No Known Problems Son Anesthesia problems Neg Hx Relation Name Status Comments Brother 1 Brother 2 Alive Father Maternal Grandmother Mother Son Alive Social History Tobacco Use Types Packs/Day Years Used Date Smoking Tobacco: Never Smokeless Tobacco: Never Tobacco Cessation:Counseling Given: Not Answered Alcohol Use Standard Drinks/Week Comments No 0 (1 standard drink = 0.6 oz pur e alcohol) [facility] Utilities Answer Date Recorded In the past 12 months has e electric, gas, oil, or water company threatened to shut off services in your home? No 12/17/2024 Humiliation, Afraid, Rape, and Kick questionnair e [...] the phone with family, friends, or neighbors? More than three times a week 12/17/2024 How often do you get togethe r with friends or relatives? Once a week 12/17/2024 How often do you attend chur ch or yarsani services? Never 12/17/2024 Do you belong to any clubs o r organizations such as pentecostal groups, unions, fraternal or athletic groups, or school groups? No 12/17/2024 How often do you attend meet ings of the clubs or organizations you belong to? Never 12/17/2024 Are you , , di vorced, , never , or living with a partner? 12/17/2024 AUDIT-C Answer Date Recorded Q1: How often do you have a drink containing alc ohol? Monthly or less 06/27/2022 Average Number of Drinks Not on file 022 Q3: How often do you have si x or more drinks on one occasion? Never 06/27/2022 Overall Financial Resource Strain (CARDIA) Answe r Date Recorded How hard is it for you to pa y for the very basics like food, housing, medical care, and heating? Not hard at all 12/17/2024 PHQ-2 Answer Date Recorded PHQ-2 Total Score (If total score is 3 or more points, staff should administer the PHQ-9) 0 10/16/2024 Hunger Vital Sign Answer Date Recorded Within the past 12 months, y ou worried that your food would run out before you got the money to buy more. Never true 12/18/19 25 Within the past 12 months, t he food you bought just didn't last and you didn't have money to get more. Never true 12/17/2024 PRAPARE - Transportation Answer Date Re corded In the past 12 months, has l ack of transportation kept you from medical appointments or from getting medications? No 03/2025 In the past 12 months, has l ack of transportation kept you from meetings, work, or from getting things needed for daily living? No 12/17/2024 Housing Stability Vital Sign Answer Aguilar e [...] place to sleep or slept in a long term (including now)? No 11/22/2020 Housing Stability Vital Sign Answer Aguilar e Recorded In the last 12 months, was t here a time when you were not able to pay the mortgage or rent on time? No 12/17/2024 In the past 12 months, how m any times have you moved where you were living? 0 12/17/2024 At any time in the past 12 m [facility], were you homeless or living in a long term (including now)? No 12/17/2024 Personal Safety Answer Date Recorded Have you ever been in or are you currently in a harmful physical or emotional relationship or is someone making you feel afraid or unsafe? Denies 12/16/2024 Comments No Sex and Gender Information Value Date Recorded Sex Assigned at Not on file Legal Sex Female 11:59 PM VESSEL ORDINARY SEAMAN Gender Identity Female 01/29/2022 12:55 PM CDT Sexual Orientation Straight 06/10/2019 1: 27 PM CDT Occupation Industry Job Start Date Job End Date retired Not on file Not on file Not on file Obstetrics History Para Term AB IAB SAB Ectopic Multiple Livin g Live Births 1 1 1 Date Outcome GA Total Labor Labor/2nd/3rd Weight Sex Type Anes PTL Shira A1 A5 Name Clin Term Last Filed Vital Signs Vital Sign Reading Time Taken Comments Blood Pressure 118/68 02/19/2025 2:23 PM CDT Pulse 69 02/19/2025 2:23 PM CDT Temperature 36.1 C (97 F) 02/19/2025 2:23 PM CDT Respiratory Rate 18 02/19/2025 2:23 PM CDT Oxygen Saturation 96% 02/19/2025 2:23 PM CDT Inhaled Oxygen Concentration - - Weight 70.8 kg (156 lb) 02/19/2025 2:23 PM CDT Height 152.4 cm (5') 02/19/2025 2:23 PM CDT Body Mass Index 30.47 02/19/2025 2:23 PM CDT Plan of Treatment Scheduled Procedures Name Priority Associated Diagnoses Date/Ti me ESOPHAGOGASTRODUODENOSCOPY Pulmonary hypertension (HCC) Health Maintenance Due Date Last Done Comments Covid-19 Vaccine (3 - 2023-2 5 season) 2024 05/01/2021, 04/03/2021 Hemoglobin A1C 03/01/2025 09/01/2024, 02/09, 11/28/2023, Additional history exists DTaP/Tdap/Td Vaccine (3 - Td or Tdap) 04/12/2025 04/12/2015, 12/17/2014 Influenza Vaccine (#1) 2025 , 08/14/2021, 06/07/2020, Additional history exists Albumin Creatinine Ratio, Urine 09/01/2025 09/01/2024, 02/24/2024, 11/28/2023, Additional history exists Lipid Panel 09/01/2025 09/01/2024, 02/09, 11/12/2022, Additional history exists Depression Screening 10/16/2025 10/16/2024, 11/29/2023, 11/15/2022, Additional history exists Foot Exam 10/16/2025 10/16/2024, 05/13, 03/21/2023, Additional history exists Well Visit 65+ 10/16/2025 10/16/2024, 11/10, 11/15/2022, Additional history exists Fall Risk Assessment 12/17/2025 12/17/2024, 10/16/2024, 11/29/2023, Additional history exists Osteoporosis Screening-Bone Density Scan 12/19/2025 12/20/2023, 09/11/2022, 08/22/2021, Additional history exists eGFR 12/28/2025 12/28/2024, 03/2025, 12/16/2024, Additional history exists Dilated Eye Exam 02/25/2026 02/25/2025, 08/2023, 02/10/2024, Additional history exists Pneumococcal vaccine 65+ Completed 08/17/2016, 03/2015 Colon Cancer Screening-CT Colonography Discontinued 02/11/2019, 11/30/2013 Colon Cancer Screening-Colonoscopy Discontinued 02/11/2019, 11/30/2013 Colon Cancer Screening-DNA Stool Discontinued 02/12/20, 11/30/2013 Colon Cancer Screening-FIT Discontinued 02/11/2019, Colon Cancer Screening-FOBT Discontinued 02/11/2019, 0 11/30/2013 Colon Cancer Screening-Sigmoidoscopy Discontinued 02/11/2019, 11/30/2013 Colorectal Cancer Screening Discontinued Hepatitis C Screening Completed 05/27/2019, 019 Zoster Vaccine Completed 08/07/2019, 05/01/2019 Breast Cancer Screening-Mammogram Discontinued 02/10/2021, 07/05/2018, 01/25/2017 Hepatitis B Screening Completed 02/24/2024 Medical Devices Implanted Type Area Institutional Research Coordinator Device Identifier Shelf Expiration Date Model / Serial / Lot Kit Bone Prep Autoplex Vertaplex Hv Ship Captain Delivery System Sterile - [id number] Implanted:Qty : 1 on 12/13/2017 by Néstor Sloan MD at [facility] Bone Cement N/A: Spine Thoracic [employer] 11/11/2019 [id number] / / [id number] [employer] Loop Recorder Monitor Cardiac Biomonitor Iv [id number] - [id number] - [id number] Implanted:Qty : 1 on 10/02/2023 by Santana Irvin MD at [facility] Implantable Loop Recorder [employer] 07/11/2024 [id number] / [id number] / [employer] Mina [id number] Synergy 3mm 20mm 144cm Radiopaque 1 Access Port Inflation Lumen - [id number] Implanted:Qty : 1 on 03/17/2021 by John Zarate MD at [facility] Stent [employer] 07/13/2022 [id number] / / [id number] Right Hip Replacement Hip Kit Bone Prep Autoplex Vertaplex Hv Ship Captain Delivery System Sterile - [id number] Implanted:Qty : 1 on 12/06/2017 by Néstor Sloan MD at [facility] Spine Lumbar [place] [employer] 11/11/2019 [id number] / / [id number] Daig Mina/[employer] [id number] Angio-Seal Evolution 6fr .035in Guidewire Bypass Tube Suture - [id number] Implanted:Qty : 1 on 03/17/2021 by John Zarate MD at [facility] [employer] Mina 10/09/2021 [id number] / / [id number] Procedures Procedure Name Priority Date/Time Associated Diagnosis Comments DEVICE CHECK - REMOTE Routine 03/12/2025 8:09 AM CDT Paroxysmal atrial fibrillation (HCC) Implantable loop recorder present Dizziness DIABETES EYE EXAM Routine 02/25/2025 3:17 PM CDT MRI BRAIN W WO CONTRAST Schedule Routine, Read Routine (OP Routine) 02/07/2025 8:44 AM CDT New onset of headaches DEVICE CHECK - REMOTE Routine 02/03/2025 12:29 PM CDT Paroxysmal atrial fibrillation (HCC) Implantable loop recorder present 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) DEVICE CHECK - IN OFFICE Routine 02/01/2025 2:19 PM CDT Paroxysmal atrial fibrillation (HCC) Implantable loop recorder present DIFFERENTIAL AUTO Routine 01/01/2025 11:55 AM CDT Abdominal wall mass CBC WITH AUTO DIFFERENTIAL Routine 01/01/2025 11:55 AM CDT Abdominal wall mass DEVICE CHECK - REMOTE Routine 01/01/2025 9:19 AM CDT Paroxysmal atrial fibrillation (HCC) Implantable loop recorder present 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) EGFR Routine 12/28/2024 4:41 PM CDT New onset of headaches COMPREHENSIVE METABOLIC PANEL Routine 12/28/2024 4:41 PM CDT New onset of headaches ERYTHROCYTE SEDIMENTATION RATE Routine 12/28/2024 4:41 PM CDT New onset of headaches RUSSEL QUALITATIVE WITH REFLEX TO RUSSEL QUANTITATIVE Routine 12/28/2024 4:41 PM CDT New onset of headaches PROTEIN ELECTROPHORESIS, WITH REFLEX, SERUM Routine 12/28/2024 4:41 PM CDT Sensory polyneuropathy HEMOGLOBIN A1C Routine 09/01/2024 9:19 AM VESSEL ORDINARY SEAMAN Type 2 diabetes mellitus with hyperglycemia, with long-term current use of insulin (HCC) LIPID PANEL Routine 09/01/2024 9:19 AM VESSEL ORDINARY SEAMAN Type 2 diabetes mellitus with hyperglycemia, with long-term current use of insulin ([facility]) Hyperlipidemia associated with type 2 diabetes mellitus (HCC) ALBUMIN CREATININE RATIO, URINE Routine 09/01/2024 9:19 AM VESSEL ORDINARY SEAMAN Type 2 diabetes mellitus with hyperglycemia, with long-term current use of insulin (HCC) DEXA TBS AXIAL SKELETON BONE DENSITY 1 OR MORE SITES Schedule Routine, Read Routine (OP Routine) 12/20/2023 2:58 PM CDT Age-related osteoporosis without current pathological fracture SCREENING MAMMOGRAM 2D BILATERAL Schedule Routine, Read Routine (OP Routine) 02/10/2021 11:40 AM CDT Breast cancer screening by mammogram HEPATITIS C ANTIBODY Routine 05/27/2019 11:05 AM CDT Encounter for hepatitis C screening test for low risk patient COLONOSCOPY Routine 02/11/2019 DIABETES FOOT EXAM Routine 10/10/2018 from Last 3 Months or Most Recently Relevant to Health Maintenance Results * DEVICE CHECK - REMOTE (03/12/2025 8:09 AM CDT) Anatomical Region Laterality Modality Other Narrative 03/19/2025 1:32 PM CDT Images from the original result were not included. 03/12/2025 [facility] remote device check NOTE The following shows snippets from the complete monthly report. The complete report in its entirety is attached to this Result Text in Tv Host No events this monitoring period Last in-office check: January 2025 Next in-office appointment: August 2025 Battery longevity = ok AT/AF burden 0.0 Device Nurse Review and Recommendations below Reviewed By Shazia Jenkins RN BSN at 12:51 PM ATTESTATION I have reviewed the device interrogation report associated with this encounter in detail. I agree with the documentation recorded/scanned into the electronic medical record. Recommendations: Continue current device follow-up. John Zarate MD MD Review and Recommendations below (please forward an in-basket message to your MA if check requires attention) John Zarate MD [facility] C[facility]IAC SERVICES PROCEDURES Final Result * DIABETES EYE EXAM (02/25/2025 3:17 PM CDT) SCRIBED DIABETIC DILATED EYE EXAM Normal us Historical Provider HEALTH MAINTENANCE Final Result * MRI Brain W WO Contrast (02/07/2025 8:44 AM CDT) Anatomical Region Laterality Modality Head and Neck N/A Magnetic Resonan ce 02/08/2025 6:42 AM CDT Impressions 02/08/2025 6:42 AM CDT 1. Interval development of small focus of T1 and T2 hypointensity with susceptibility artifact in the left aspect of the génesis without enhancement consistent with chronic microhemorrhage. This may represent developing underlying cavernous malformation or potentially sequela of such processes as chronic hypertension. Follow-up brain MR could be performed in approximately 6 months to determine stability of this finding. 2. Otherwise, no acute intracranial abnormality identified including no acute infarction or abnormal intracranial enhancement. Findings consistent with chronic small vessel ischemic disease. Electronically signed by: Mendel Balbuena M.D. Narrative 02/08/2025 6:42 AM CDT EXAMINATION: Magnetic resonance imaging (MRI) of the brain and brainstem without and with contrast HISTORY: Headaches TECHNIQUE: Multiplanar multi-weighted MRI of the brain and brainstem was performed without and with intravenous contrast using the general brain protocol. Contrast information: 14 mL Gadoterate Meglumine IV COMPARISON: Brain MR from 11/03/2021 FINDINGS: Scattered periventricular and subcortical FLAIR hyperintensities are similar to prior study and likely represent sequela of chronic small vessel ischemic disease. The superior sagittal sinus demonstrates normal venous flow. The corpus callosum is normal in shape and signal intensity. The posterior fossa is unremarkable. The pituitary and sella are normal. The brainstem and craniocervical junction are unremarkable. Diffusion weighted images reveal no hyperintensities to suggest acute cerebral infarction. There is a small focus of T2 hypointensity in the left aspect of the génesis with T1 hypointensity and susceptibility artifact measuring approximately 2.5 mm (series 7 image 21 and series 16 image 27), new when compared with prior study and consistent with chronic microhemorrhage. No associated enhancement identified. The ventricles are normal in size and position without evidence of hydrocephalus. The paranasal sinuses are normal. Small bilateral mastoid effusions The orbits appear normal. Normal flow voids are demonstrated in the carotid arteries and basilar artery. There is no abnormal contrast enhancement. Procedure Note Mendel Balbuena MD - 02/08/2025 EXAMINATION: Magnetic resonance imaging (MRI) of the brain and brainstem without and with contrast HISTORY: Headaches TECHNIQUE: Multiplanar multi-weighted MRI of the brain and brainstem was performed without and with intravenous contrast using the general brain protocol. Contrast information: 14 mL Gadoterate Meglumine IV COMPARISON: Brain MR from 11/03/2021 FINDINGS: Scattered periventricular and subcortical FLAIR hyperintensities are similar to prior study and likely represent sequela of chronic small vessel ischemic disease. The superior sagittal sinus demonstrates normal venous flow. The corpus callosum is normal in shape and signal intensity. The posterior fossa is unremarkable. The pituitary and sella are normal. The brainstem and craniocervical junction are unremarkable. Diffusion weighted images reveal no hyperintensities to suggest acute cerebral infarction. There is a small focus of T2 hypointensity in the left aspect of the génesis with T1 hypointensity and susceptibility artifact measuring approximately 2.5 mm (series 7 image 21 and series 16 image 27), new when compared with prior study and consistent with chronic microhemorrhage. No associated enhancement identified. The ventricles are normal in size and position without evidence of hydrocephalus. The paranasal sinuses are normal. Small bilateral mastoid effusions The orbits appear normal. Normal flow voids are demonstrated in the carotid arteries and basilar artery. There is no abnormal contrast enhancement. IMPRESSION: 1. Interval development of small focus of T1 and T2 hypointensity with susceptibility artifact in the left aspect of the génesis without enhancement consistent with chronic microhemorrhage. This may represent developing underlying cavernous malformation or potentially sequela of such processes as chronic hypertension. Follow-up brain MR could be performed in approximately 6 months to determine stability of this finding. 2. Otherwise, no acute intracranial abnormality identified including no acute infarction or abnormal intracranial enhancement. Findings consistent with chronic small vessel ischemic disease. Electronically signed by: Mendel Balbuena M.D. Wang Dawson Jr., MD [facility] MRI PROCEDURES Final Result * DEVICE CHECK - REMOTE (02/03/2025 12:29 PM CDT) Anatomical Region Laterality Modality Other Narrative 02/08/2025 3:22 PM CDT Images from the original result were not included. 02/05/2025 [place] monthly remote device check The complete report in its entirety is attached to this Result Text in Tv Host Last in-office check: January 2025 Next in-office appointment: August 2025 AT/AF burden: 0.0% PVC burden: 0.9% NO events this monitoring period Reviewed By Shazia Alice, THEORETICAL PHYSICIST at 3:18 PM ATTESTATION I have reviewed the device interrogation report associated with this encounter in detail. I agree with the documentation recorded/scanned into the electronic medical record. Recommendations: Continue current device follow-up. John Zarate MD MD Review and Recommendations below (please forward an in-basket message to your MA if check requires attention) us John Zarate MD [facility] CARDIAC SERVICES PROCEDURES Final Result * DEVICE CHECK - IN OFFICE (02/01/2025 2:19 PM CDT) Anatomical Region Laterality Modality Other Narrative 02/02/2025 8:08 AM CDT Images from the original result were not included. 02/01/2025 Biotronik in-office device check The complete report is attached to this Result Text in Tv Host John Zarate MD CV CARDIAC SERVICES PROCEDURES Final Result * Differential, auto (01/01/2025 11:55 AM CDT) Neutrophil abs 4.55 1.50 - 6.50 K/cumm Comment:Testing performed by : [facility], [address] [place] [address]., [id number] Imm gran abs 0.03 0.00 - 0.10 K/cumm [facility] ([place]) Comment:Testing performed by : [address] [address] Lymphocyte abs 1.48 0.80 - 3.30 K/cumm [facility] ([place]) Comment:Testing performed by : [facility], [address] [place] [address]., [address] Monocyte abs 0.52 0.20 - 0.80 K/cumm [facility] ([place]) Comment:Testing performed by : [address] [address] Eosinophil abs 0.26 0.00 - 0.50 K/cumm [facility] ([place]) Comment:Testing performed by : [address], [address] Basophil abs 0.07 0.00 - 0.10 K/cumm [facility] ([place]) Comment:Testing performed by : [facility], [address] [place] [address]., [address] Neutrophil pct 65.9 % [facility] ([place]) Comment: Interpretive Data Percent cell count reference ranges are not reported, since discordance with absolute values may lead to misinterpretation of CBC data. Current Interpretive Data was last revised on 2017. Testing performed by: [facility], [address] [place] [address]., [address] Imm gran pct 0.4 % [facility] ([place]) Comment: Interpretive Data Percent cell count reference ranges are not reported, since discordance with absolute values may lead to misinterpretation of CBC data. Current Interpretive Data was last revised on 2017. Testing performed by: [address] [address] Lymphocyte pct 21.4 % [facility] ([place]) Comment: Interpretive Data Percent cell count reference ranges are not reported, since discordance with absolute values may lead to misinterpretation of CBC data. Current Interpretive Data was last revised on 2017. Testing performed by: [address] [address] Monocyte pct 7.5 % [facility] ([place]) Comment: Interpretive Data Percent cell count reference ranges are not reported, since discordance with absolute values may lead to misinterpretation of CBC data. Current Interpretive Data was last revised on 2017. Testing performed by: [facility], [address] [place] [address]., [address] Eosinophil pct 3.8 % [facility] ([place]) Comment: Interpretive Data Percent cell count reference ranges are not reported, since discordance with absolute values may lead to misinterpretation of CBC data. Current Interpretive Data was last revised on 2017. Testing performed by: [address] [address] Basophil pct 1.0 % [facility] ([place]) Comment: Interpretive Data Percent cell count reference ranges are not reported, since discordance with absolute values may lead to misinterpretation of CBC data. Current Interpretive Data was last revised on 2017. Testing performed by: [address] [address] Blood 01/01/2025 11:5 5 AM CDT 01/01/2025 9:39 PM CDT Madelin Truong NP LAB BLOOD ORDERABLES Final Resul t [facility] ([place]) [facility] Department [place] [address] * (ABNORMAL) CBC with auto differential (01/01/2025 11:55 AM CDT) WBC 6.91 3.80 - 9.90 K/cumm Comment:Testing performed by : [facility], [address] [place] [address], [address] Hgb 15.3 11.9 - 15.5 g/dL [facility] ([facility]) Comment:Testing performed by : [address], [address] Hct 49.9(H) 35.6 - 45.5 % [facility] ([place]) Comment:Testing performed by : [address], [address] Plt 260 150 - 400 K/cumm [facility] ([place]) Comment:Testing performed by : [address], [address] MPV 9.7 9.1 - 12.3 fL [facility] ([place]) Comment:Testing performed by : [address], [address] RBC 4.69 3.90 - 5.20 M/cumm [facility] ([place]) Comment:Testing performed by : [address], [address] MCV 106.4(H) 81.3 - 96.4 fL [facility] ([place]) Comment:Testing performed by : [address], [address] MCH 32.6 27.1 - 33.3 pg [facility] ([place]) Comment:Testing performed by : [address], [address] MCHC 30.7(L) 32.3 - 35.7 g/dL [facility] ([place]) Comment:Testing performed by : [facility], [address] [place] [address]., [address] RDW CV 14.4 11.1 - 14.9 % [facility] ([place]) Comment:Testing performed by : [facility], [address] [place] [address], [address] RDW SD 57.1(H) 35.7 - 48.1 fL [facility] ([place]) Comment:Testing performed by : [facility], [address] [place] [address]., [address] NRBC abs 0.00 0.00 - 0.01 K/cumm [facility] ([place]) Comment:Testing performed by : [facility], [address] [place] [address], [address] Blood 01/01/2025 11:5 5 AM CDT 01/01/2025 9:39 PM CDT Narrative [facility] ([place]) - 01/01/2025 10:02 PM CDT bethalto Madelin Truong NP LAB BLOOD ORDERABLES Final Resul t [facility] ([place]) [facility] Department [place] [address] * DEVICE CHECK - REMOTE (01/01/2025 9:19 AM CDT) Anatomical Region Laterality Modality Other Narrative 01/02/2025 6:35 AM CDT Images from the original result were not included. 01/01/2025 [place] monthly remote device check NOTE The following shows snippets from the complete monthly report. The complete report in its entirety is attached to this Result Text in Tv Host Last in-office check: July 2024 Next in-office appointment: January 2025 AT/AF burden 0.0% No events this monitoring period Reviewed By Shazia Jenkins THEORETICAL PHYSICIST at 1:16 PM ATTESTATION I have reviewed the device interrogation report associated with this encounter in detail. I agree with the documentation recorded/scanned into the electronic medical record. Recommendations: Continue current device follow-up. John R. Tessa, MD MD Review and Recommendations below (please forward an in-basket message to your MA if check requires attention) us John Zarate MD [facility] CARDIAC SERVICES PROCEDURES Final Result * RUSSEL ab ql w/rflx to RUSSEL qn (12/28/2024 4:41 PM CDT) RUSSEL Negative Comment: Interpretive Data Normal range for RUSSEL Qualitative Antibody = Negative. 1. RUSSEL is performed using indirect immunofluorescence against HEp-2 cells 2. RUSSEL titers are performed on all positive qualitative results. 3. A significantly positive RUSSEL result is defined as a positive nuclear fluorescence at a titer of 1:80 or greater. 4. 15% of normal people above age 65 have significantly positive RUSSEL results. 5% or less of normal people age 65 or under have significantly positive RUSSEL results. Current interpretive data was last revised on 2020. Blood 12/28/2024 4:41 PM CDT 12/28/2024 5:05 PM CDT us Wang Dawson Jr., MD LAB BLOOD ORDERABL ES Final Result [facility] Department [place] [address] * (ABNORMAL) eGFR (12/28/2024 4:41 PM CDT) eGFR 46(L) >=60 mL/min/1. 73 m2 Comment: Interpretive Data Reference Interval Normal >/= 90 mL/min/1.73m2 Mildly decreased* 60 - 89 mL/min/1.73m2 Mildly to moderately decreased 45 - 59 mL/min/1.73m2 Moderately to severely decreased 30 - 44 mL/min/1.73m2 Severely decreased 15 - 29 mL/min/1.73m2 Kidney Failure < 15 mL/min/1.73m2 *Relative to young adult level Estimated glomerular filtration rate is determined by the 2020 CKD-EPI equation recommended by the National Kidney Foundation (A Unifying Approach to GFR Estimation: Recommendations of the NKF-ASK Task Force on Reassessing the Inclusion of Race in Diagnosing Kidney Disease, JASN 2020). The CKD-EPI equation should not be used for patients with unstable renal function and has not been validated in children and those over 70. Current interpretive data was last reviewed 2021. Blood 12/28/2024 4:41 PM CDT 12/28/2024 5:13 PM CDT Wang Dawson Jr., MD LAB BLOOD ORDERABL ES Final Result Performing Organization Address City/[facility] Co de Phone Number [facility] [place] [address] * Erythrocyte sedimentation rate (12/28/2024 4:41 PM CDT) Pathologist [facility] Erythrocyte sedimentation rate 13 1 - 30 mm/hr Blood 12/28/2024 4:41 PM CDT 12/28/2024 5:05 PM CDT Wang Dawson Jr., MD LAB BLOOD ORDERABL ES Final Result Performing Organization Address [facility] de Phone Number [facility] [place] [address] * (ABNORMAL) Protein electrophoresis with reflex, serum with interpretation (12/28/2024 4:41 PM CDT) Protein, sr 6.8 6.2 - 8.2 g/dL Albumin 3.9 3.2 - 5.0 g/dL [facility] Alpha-1 globulin 0.3 0.2 - 0.4 g/dL [facility] Alpha-2 globulin 1.1(H) 0.5 - 1.0 g/dL [facility] Beta-1 globulin 0.5 0.3 - 0.6 g/dL [facility] Beta-2 globulin 0.4 0.2 - 0.6 g/dL [facility] Gamma globulin 0.6 0.5 - 1.7 g/dL [facility] SPEP interp Please see comment [facility] Comment: No apparent monoclonal peak Reviewed and signed by Koffi Mccullough MD, PhD 12/29/2024 Blood 12/28/2024 4:41 PM CDT 12/28/2024 5:05 PM CDT us Wagn Dawson Jr., MD LAB BLOOD ORDERABL ES Final Result [facility] Department [place] [address] * (ABNORMAL) Comprehensive metabolic panel (12/28/2024 4:41 PM CDT) Sodium 141 135 - 145 mmol/L Potassium, pl 3.6 3.3 - 4.9 mmol/L [facility] Chloride 103 97 - 110 mmol/L [facility] CO2 28 22 - 32 mmol/L [facility] Anion gap 10 2 - 15 mmol/L [facility] BUN 12 6 - 25 mg/dL [facility] Creatinine 1.21(H) 0.60 - 1.10 mg/dL [facility] Glucose 75 70 - 199 mg/dL [facility] Comment: Interpretive Data Fasting glucose >/= 126 mg/dl is diagnostic for diabetes. Fasting is defined as no caloric intake for at least 8 hours. Fasting glucose between 100 mg/dl to 125 mg/dl is diagnostic of prediabetes. In a patient with classic symptoms of hyperglycemia or hyperglycemic crisis, a random glucose >/= 200 mg/dl is diagnostic for diabetes. In the absence of unequivocal hyperglycemia, results should be confirmed by repeat testing. The classification and Diagnosis of Diabetes Diabetes Care 2021; 46: S19-S40. Current interpretive data was last revised 2022. Calcium 9.7 8.5 - 10.3 mg/dL [facility] Bilirubin, total 0.6 0.1 - 1.2 mg/dL [facility] Protein, pl 7.3 6.5 - 8.5 g/dL [facility] Albumin 4.3 3.5 - 5.0 g/dL [facility] Alk phos 68 40 - 130 Units/L [facility] ALT 38 7 - 45 Units/L [facility] AST 51(H) 10 - 45 Units/L [facility] Blood 12/28/2024 4:41 PM CDT 12/28/2024 5:05 PM CDT Wang Dawson Jr., MD LAB BLOOD ORDERABL ES Final Result [facility] Department [place] [address] * Albumin Creatinine Ratio, Urine (09/01/2024 9:19 AM [facility]) Albumin Ur 14.3 mg/L Comment: Interpretive Data No reference range established. Current interpretive data was last revised 2018. Testing performed by: [address] [address] Creatinine Ur 98.9 mg/dL [facility] ([place]) Comment: Interpretive Data No reference range established. Current interpretive data was last revised 2018. Testing performed by: [facility], [address] [place] [address]., [address] Albumin Creatinine Ratio, Ur 14 1 - 29 mg/g [facility] ([place]) Comment:Testing performed by : [address] [address] Urine 09/01/2024 9:19 AM [facility] 09/01/2024 12:47 PM [facility] us Nroa Malagon MD LAB URINE ORDERABLES Final Re sult [facility] ([place]) [facility] Department [place] [address] * (ABNORMAL) Hemoglobin A1c (09/01/2024 9:19 AM [facility]) Hgb A1C 7.5(H) 4.0 - 5.6 % Comment:Testing performed by : [address] [address] Estimated Average Glucose 169 mg/dL [facility] ([place]) Comment: The ADA recommends reporting an estimated Average Glucose (eAG) with all Hemoglobin A1c results using the equation derived from a study of 507 normal and diabetic adults. Minority populations were underrepresented and children were not included. (Diabetes Care 31:1148-6677, 2008). The eAG is not equivalent to a fasting glucose. Testing performed by: [facility], [address] [place] [address]., [address] Blood 09/01/2024 9:19 AM [facility] 09/01/2024 12:47 PM [facility] us Nora Malagon MD LAB BLOOD ORDERABLES Final Re sult [facility] ([place]) [facility] Department [place] [address] * Lipid panel (09/01/2024 9:19 AM [facility]) Cholesterol 137 30 - 199 mg/dL Comment: Interpretive Data Ages < or = 19 years Acceptable: <170 mg/dL Borderline high: 170-199 mg/dL High: >or= 200 mg/dL Ages > or = 20 years Desirable: <200 mg/dL Borderline high: 200-239 mg/dL High: >or= 240 mg/dL Literature References: 1. Expert Panel on Integrated Guidelines for Cardiovascular Health and Risk Reduction in Children and Adolescents. Pediatrics 2011;128:S213 2. NCEP Expert Panel. Circulation 2004;110:227 Current Interpretive Data was last revised on 2018. Testing performed by: [facility], [address] [place] [address], [place]., [address] Triglycerides 101 <=149 mg/dL [facility] ([place]) Comment: Interpretive Data Ages < or = 9 years Acceptable: <75 mg/dL Borderline high: 75-99 mg/dL High: >or= 100 mg/dL Ages 10 to 20 years Acceptable: <90 mg/dL Borderline high: 90-129 mg/dL High: >or= 130 mg/dL Ages > or = 20 years Desirable: <150 mg/dL Borderline high: 150-199 mg/dL High: 200-499 mg/dL Very high: >or= 499 mg/dL Literature References: 1. Expert Panel on Integrated Guidelines for Cardiovascular Health and Risk Reduction in Children and Adolescents. Pediatrics 2011;128:S213 2. NCEP Expert Panel. Circulation 2004;110:227 Current Interpretive Data was last revised on 2018. Testing performed by: [facility], [address] [place] [address]., [address] HDL 60 >=40 mg/dL [facility] ([place]) Comment: Interpretive Data Ages < or = 19 years Acceptable: >45 mg/dL Borderline low: 40-45 mg/dL Low: <40 mg/dL Ages > or = 20 years Desirable: >or= 60 mg/dL Low: <40 mg/dL Literature References: 1. Expert Panel on Integrated Guidelines for Cardiovascular Health and Risk Reduction in Children and Adolescents. Pediatrics 2011;128:S213 2. NCEP Expert Panel. Circulation 2004;110:227 Current Interpretive Data was last revised on 2018. Testing performed by: [address] [address] LDL, calculated 58 <=129 mg/dL [facility] ([place]) Comment: Interpretive Data Ages < or = 19 years Acceptable: <110 mg/dL Borderline high: 110-129 mg/dL High: >or= 130 mg/dL Ages > or = 20 years Optimal: <100 mg/dL Near optimal: 100-129 mg/dL Borderline high: 130-159 mg/dL High: >160 mg/dL Calculated using the Raulito LDL-C estimating equation. This equation was implemented on 2024. Prior to this date LDL-C was estimated using the Friedewald equation. Literature References: 1. Expert Panel on Integrated Guidelines for Cardiovascular Health and Risk Reduction in Children and Adolescents. Pediatrics 2011;128:S213 2. NCEP Expert Panel. Circulation 2004;110:227 3. Raulito Richter et al. JIMMIE Cardiol. 2020 December 10;5(5):540-548. doi: 10.1001/jamacardio.2020.0013 Current Interpretive Data was last revised on 2024. Testing performed by: [address] [address] Non-HDL Cholesterol 77 mg/dL [facility] ([place]) Comment: Interpretive Data Ages < or = 19 years Acceptable: <120 mg/dL Borderline high: 120-144 mg/dL High: >145 mg/dL Ages > or = 20 years When triglycerides are >200 mg/dL, Non-HDL cholesterol is a secondary target of therapy with treatment goals that are 30 mg/dL greater than the LDL cholesterol target. Literature References: 1. Expert Panel on Integrated Guidelines for Cardiovascular Health and Risk Reduction in Children and Adolescents. Pediatrics 2011;128:S213 2. NCEP Expert Panel. Circulation 2004;110:227 Current Interpretive Data was last revised on 2018. Testing performed by: [facility], [address] [place] [address]., [address] Chol/HDL ratio 2 CLARIS[facility] Oneil [facility] ([place]) Comment:Testing performed by : [facility], [address] [place] [address]., [address] Blood 09/01/2024 9:19 AM [facility] 09/01/2024 12:47 PM [facility] us Nora Malagon MD LAB BLOOD ORDERABLES Final Re sult [facility] ([place]) [facility] Department [place] [address] * Dexa TBS Axial Skeleton Bone Density 1 or more sites (12/20/2023 2:58 PM CDT) Anatomical Region Laterality Modality Wrist, Body N/A Radiographic Thalia ging Narrative 12/23/2023 8:21 AM CDT Patient Name: Dayanna Kirkpatrick Date of : 1945 Date of scan: 12/20/2023 Bone mineral density was performed on a Hologic Discovery Densitometer. Based on machine cross-calibration and precision studies the least significant changes of this densitometer is 0.024 g/cm2 at the spine, 0.020 g/cm2 at the total proximal femur, and 0.014g/cm2 at the forearm. HISTORY: This is a 78 y.o. postmenopausal female with a history of osteoporosis. She reports that she has never smoked. She has never used smokeless tobacco. Currently on treatment with calcium, vitamin D, anticoagulants, and diuretics, previously treated with zoledronic acid (Reclast) and teriparatide (Forteo), and current complaint of neck pain and leg pain. INDICATIONS: Menopause status and history of osteoporosis. FINDINGS: BONE MINERAL DENSITY OF THE PROXIMAL FEMUR Bone Mineral Density (BMD) of the left hip total was found to be 0.768 gm/cm2. This corresponds to a T-score standard deviations from the mean of young adults of -1.4. Femoral neck is 0.609 gm/cm2 with a T-score (standard deviations from the mean of young adults) of -2.2. When compared to the previous study of 09/11/2022 there has been no significant changes in bone density. BONE MINERAL DENSITY OF THE FOREARM Bone Mineral density (BMD) of the left proximal 1/3 of the radius measures 0.625 gm/cm2. This corresponds to a T-score (standard deviations from the mean of young adults) of -1.2. When compared to the previous study of 09/11/2022 there has been a -0.020 gm/cm (-3.0%) decrease in bone density that is considered significant. A forearm bone density study was performed instead of a spine study because of severe degenerative disease SUMMARY: Bone mineral density shows evidence of low bone mass at the proximal femur and forearm and moderately increased fracture risk (Osteopenia). There has been a significant decrease in bone density since previous measurement. The lumbar spine Trabecular Bone Score TBS was not obtained due to the bone mineral density of the spine not being acquired. ADDITIONAL COMMENTS: Postmenopausal Women and Men Over 50: Diagnostic criteria: Osteoporosis: BMD at or below -2.5 T-score; Osteopenia (low bone mass): BMD between -1.0 and -2.5 T-score. If the patient has a history of a fragility fracture, a fracture that occurred with trauma equivalent to a fall from a standing position or less, then the diagnosis is osteoporosis regardless of bone density. The history and data sections of the bone mineral density scan were prepared by Kirsten Lomax)(CBDT) who is accredited by the International Society of Clinical Densitometry. The overall patient assessment and scan interpretation were performed by Delmy Godfrey M.D. who is certified by the International Society of Clinical Densitometry. [id number] Delmy Godfrey MD IMG DXA PROCEDURES Final R esult * Screening Mammogram 2D Bilateral (02/10/2021 11:40 AM CDT) Anatomical Region Laterality Modality Breast Bilateral Mammography Narrative 02/10/2021 4:19 PM CDT BILATERAL DIGITAL MAMMOGRAPHY The present examination has been compared to prior imaging studies dated 07/05/2018 and 02/22/2010. Mammography Findings CAD (computer-aided detection) software was utilized. The breasts are almost entirely fat. No masses, significant calcifications or other abnormalities are seen. Impression There is no mammographic evidence of malignancy. Screening mammogram in 1 year is recommended. BI-RADS Category 1: Negative PATIENT LETTER SENT Nora Malagon MD IMG MAMMO PROCEDURES Final Re sult * Hepatitis C antibody (05/27/2019 11:05 AM CDT) Hep C Ab Negative Negative [facility] ([place]) Comment:Testing performed by : [facility], [address] [place] [address], [facility] Blood specimen (specimen) 05/27/2019 11:05 AM CDT 05/27/2019 7:24 PM CDT Linwood Pond DO LAB MICROBIOLOGY - GENERAL ORDERABLES Final Result [facility] ([place]) [address] [id number] * COLONOSCOPY (02/11/2019) Colonoscopy Normal Historical Provider HEALTH MAINTENANCE Final Result * DIABETES FOOT EXAM (10/10/2018) Diabetic Foot Exam Abnormal Historical Provider HEALTH MAINTENANCE Final Result from Last 3 Months or Most Recently Relevant to Health Maintenance Insurance MEDICARE [facility] Address: [address] [place] [address] [employer] MEDICARE GOLD A[employer] MEDICARE GOLD Advance Directives For more information, please contact: [phone] * Full Code (Latest Code Status on File) Date Activated Date Inactivated Comments 12/17/2024 6:11 AM 12/17/2024 7:35 PM * Full Code Date Activated Date Inactivated Comments 10/02/2023 10:40 AM 10/02/2023 3:34 PM * Full Code Date Activated Date Inactivated Comments 06/27/2022 11:37 PM 07/04/2022 10:01 PM * Full Code Date Activated Date Inactivated Comments 04/30/2022 1:19 PM 04/30/2022 8:06 PM * Full Code Date Activated Date Inactivated Comments 03/17/2021 3:13 PM 03/18/2021 6:25 PM 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 Relationship Specialty Start Date End Date Nora Malagon MD [address] [place] [id number] PCP - General Infectious Diseases 12/05/20 Ariana Nuñez MD [address] [place] [address] [address] [place] [address] Referring Physician Endocrinology Diabetes & Metabolism 12/07/17 Néstor Sloan MD [address] [place] [address] [address] [place] [address] Surgeon Neurosurgery 12/14/17 Gabrielle Arias PA [address] [place] [address] [address] [place] [address] Physician Customs Patrol Officer Orthopedic Surgery 09/24/19 [place] [id number] [address] Surgeon Orthopedic Surgery 02/10/20 [place] [address] [address] Consulting Physician Bone Health 10/10/20 [place] [address] [address] Anesthesiologist Pain Management 02/10/12 Ata Oliveira MD [address] [place] [address] [facility] [address] [place] [address] Consulting Physician Neurology 02/10/20 Addie Francis MD [address] [place] [address] [facility] [address] [place] [address] Surgeon Vascular Surgery 11/08/20 Vinh Scherer MD [address] [place] [address] [address] Consulting Physician Vascular Surgery 10/28/20 Michael Weiss MD [address] [address] [place] [address] Consulting Physician Psychiatry 02/09/21 Farnaz Banda MD [address] [place] [address] Consulting Physician Pulmonary Disease 04/27/21 Femi Lorenzana MD [address] [place] [address] Consulting Physician Sleep Medicine 09/21/21 Jeanne Laguerre MD [address] [place] [address] Referring Physician Ophthalmology 06/12/21 John Zarate MD [address] [place] [address] Consulting Physician Cardiology 04/09/22 Izzy Padilla MD PhD [address] [place], [place] [id number] Consulting Physician Internal Medicine 07/03/22 Reid Whipple MD [address] [place] [address] [address] Delarosa [facility] [address] [place] [address] Surgeon Orthopedic Surgery 05/25/22 Laura Menjivar, AMALIA [address] [place] [address] [address]arosa [facility] [address] [place] [address] Nurse Practitioner Family Medicine 12/21/22 Peter Ritter MD [address] [place] [address] [address] [place] [address] Consulting Physician Endocrinology 01/18/23 Otto White MD [address] [facility] [address] [place] [address] Consulting Physician Nephrology 05/14/23 Heber Christianson MD [address] [place] [address] Referring Physician Internal Medicine 06/04/23 Iliana Leonard PA [address] [facility] [address] [place] [address] Network Firewall Engineer Orthopedic Surgery 07/24/23 James Gonzalez MD [address] [facility] [address] [place] [address] Consulting Physician General Surgery 09/12/23 Iliana Leonard PA [address] [place] [address] [address] [place] [address] Orthopedic Surgery 09/25/23 Delmy Godfrey MD [address] [place] [address] [address] [place] [address] Consulting Physician Internal Medicine 12/23/23 Santana Arriaga Jr., MD [address] [facility] DIV IM PULMONARY [place] [address] Consulting Physician Pulmonary Disease 08/23/24
[2025-03-24] MEDS: cefTRIAXone 1 GM, LIDOCAINE 1% LOCAL INJ 2.1 ML IM (11:53)
== END 2025-03-24 12:18 | disposition home or self-care (01) ==
PROVIDERS: Emergency Provider Nurse Practitioner Family; PCP Internal Medicine Infectious Disease
DX: L03.012 Cellulitis of left finger (principal); I48.91 Unspecified atrial fibrillation; I25.10 Atherosclerotic heart disease of native coronary artery without angina pectoris; Z95.5 Presence of coronary angioplasty implant and graft; I10 Essential (primary) hypertension; E78.00 Pure hypercholesterolemia, unspecified; E11.9 Type 2 diabetes mellitus without complications; Z79.4 Long term (current) use of insulin; Z79.84 Long term (current) use of oral hypoglycemic drugs; Z79.85 Long-term (current) use of injectable non-insulin antidiabetic drugs; F41.9 Anxiety disorder, unspecified; Z86.718 Personal history of other venous thrombosis and embolism; Z86.711 Personal history of pulmonary embolism; Z79.01 Long term (current) use of anticoagulants
CPT/HCPCS: 96372; 99203; G0463; J0696; J2003